=== PATIENT | female | born 1945 | race Caucasian/White ===

== ENCOUNTER 2020-01-04 11:06 | Inpatient (IN) | payer MEDICARE, OTHER, SELFPAY ==
[2020-01-04] VITALS (10 sets, daily range): BP systolic 138–172; BP diastolic 59–92; PULSE 90–122; RESP 18–30; TEMP 36.7–38.2; O2SAT 94–100; BMI 16.0; BMI 16.5
--- NOTE | 2020-01-04 11:08 | XR_ITS ---
PROCEDURE: XR CHEST PORTABLE CLINICAL HISTORY: fall Posttraumatic pain COMPARISON: No exams were available for comparison FINDINGS: There is severe patient rotation to the right. There are chronic changes with hyperinflation and biapical pleural thickening. There are old right-sided rib fractures. No acute fracture apparent. No evidence of pneumothorax or lobar consolidation. IMPRESSION: No acute findings. Dictated by: Kodak Ames MD 01/04/2020 12:58 Electronically signed by Kodak Ames MD in [facility] 01/04/2020 12:58
--- NOTE | 2020-01-04 11:08 | XR_ITS ---
PROCEDURE: XR HIP LT 2-3V W/PELVIS CLINICAL INDICATION: fall Posttraumatic pain COMPARISON: No exams were available for comparison FINDINGS: There is a comminuted impacted fracture involving the left femoral neck at the inter trochanteric region. There is nearly 2 cm medial displacement of the lesser trochanter. There is coxa varus deformity. Femoral head is located. There is a Bates catheter present with osteoarthritic changes noted of the right hip. On the AP view of the pelvis there is are numerous small opacities overlying the right lower quadrant IMPRESSION: 1. Comminuted intertrochanteric left hip fracture with coxa varus deformity 2. Numerous small opacities overlying the right ilium and right lower quadrant which may be due to artifact. Gallstones could have a similar appearance although would be somewhat low for gallbladder. Dictated by: Kodak Ames MD 01/04/2020 13:05 Electronically signed by Kodak Ames MD in [facility] 01/04/2020 13:05
--- NOTE | 2020-01-04 11:08 | CT_ITS ---
PROCEDURE: CT HEAD/BRAIN WO CON CLINICAL INDICATION: fall Posttraumatic pain, Head injury with headache/pain, contusion, abrasion or hematoma COMPARISON: No exams were available for comparison TECHNIQUE: Axial images obtained. All CT scans at the facility use one or more dose reduction, viz: automated exposure control, ma/kV adjustment per patient size (including targeted exams where dose is matched to indication, i.e. head), or iterative reconstruction technique. FINDINGS: A mild degree of motion artifact which somewhat obscures fine detail. No midline shift, mass effect, intracranial hemorrhage, or hydrocephalus is evident. Low-density changes are present in the periventricular region consistent with ischemic gliotic change from microvascular disease. No acute calvarial fracture. There is moderate mucosal thickening of the sphenoid sinus. IMPRESSION: No acute intracranial findings Dictated by: Kodak Ames MD 01/04/2020 12:52 Electronically signed by Kodak Ames MD in [facility] 01/04/2020 12:52
--- NOTE | 2020-01-04 11:08 | XR_ITS ---
PROCEDURE: XR WRIST LT MIN 3V CLINICAL INDICATION: fall' Posttraumatic pain COMPARISON: No exams were available for comparison FINDINGS: There is a comminuted impacted distal radial fracture with mild dorsal angulation of the distal fracture fragment. The dorsal fracture fragment is displaced dorsally by 12 mm. There is some impaction of the fracture fragments with mild lateral displacement of the lateral fracture fragment. There is suspected intra-articular involvement. Avulsion fracture of the ulnar styloid noted. IMPRESSION: Comminuted displaced and dorsally angulated distal radial fracture with suspected intra-articular involvement with associated ulnar styloid avulsion. Dictated by: Kodak Ames MD 01/04/2020 13:01 Electronically signed by Kodak Ames MD in [facility] 01/04/2020 13:01
--- NOTE | 2020-01-04 11:08 | CT_ITS ---
PROCEDURE: CT CERVICAL SPINE WO CON CLINICAL INDICATION: fall Neck injury with pain, contusion/abrasion or hematoma, cervical sprain/strain the COMPARISON: XR CHEST PORTABLE from 01/04/2020 TECHNIQUE: Axial images obtained with sagittal and coronal reformats. All CT scans at the facility use one or more dose reduction, viz: automated exposure control, ma/kV adjustment per patient size (including targeted exams where dose is matched to indication, i.e. head), or iterative reconstruction technique. Axial spiral CT scanning performed of the cervical spine beginning at the base of the skull and continuing to the upper T-spine. 3-D multiplanar reconstruction with 3-D manipulation of volumetric data set in image rendering was completed by the radiologist and/or technologist with the supervision of the radiologist on independent workstation. FINDINGS: There is good alignment. There is diffuse osteopenia. The odontoid process is tilted posteriorly however, no definite fracture is apparent. This may represent old injury. There is thoracic kyphosis and exaggerated cervical lordosis. No definite fracture or dislocation. No prevertebral soft tissue swelling. It appears that the facets may be partially fused at C3-C4 and C5. There is degenerative disc disease at C3-C4 C4-C5 and C5-C6 no acute finding in the lung apices. IMPRESSION: 1. No acute fracture.. Possible odontoid fracture with posterior tilting of the odontoid 2. Thoracic kyphosis with cervical lordosis with degenerative changes Dictated by: Kodak Ames MD 01/04/2020 12:57 Electronically signed by Kodak Ames MD in [facility] 01/04/2020 12:57
--- NOTE | 2020-01-04 11:16 | ECG_ITS ---
APPROVED REPORT Exam: Resting ECG HR:113 bpm ECG Measurements Heart Rate 113 AXES VA 126 P 83 QRSd 98 QRS -57 QT 348 T 86 QTc 477 <Conclusion> Sinus tachycardia Incomplete right bundle branch block Left anterior fascicular block Voltage criteria for left ventricular hypertrophy Cannot rule out Septal infarct, age undetermined Abnormal ECG Electronically signed by : Levar Vergara, 01/05/2020 15:50:55
[2020-01-04 11:24] LABS: Basophils # 0.1 K/mm3 (0-0.2); Basophils % 0.4 % (0.1-2.0); Eosinophils % 0.1 % (0.1-12.0); Hematocrit 34.8 % (37.0-47.0); Hemoglobin 11.4 g/dL (12.2-16.2); Lymphocytes % 3.5 % (10-50); Mean Corpuscular HGB Conc 32.7 g/dL (31.8-35.4); Mean Platelet Volume 8.4 fl (7.4-10.4); Monocytes % 3.8 % (1.7-9.3); Neutrophils # 25.2 K/mm3 (1.8-7.8); Neutrophils % 92.2 % (37.0-80.0); Platelet Count 462 K/mm3 (142-424); Red Blood Count 3.78 M/mm3 (4.20-5.40); Red Cell Distribution Width 13.8 % (11.5-17.5); White Blood Count 27.3 K/mm3 (4.8-10.8)
[2020-01-04 11:28] LABS: Chloride 89 mmol/L (98-107); Potassium 4.2 mmoL/L (3.5-5.1); Sodium 134 mmol/L (136-145)
[2020-01-04 11:29] LABS: MANUAL DIFFERENTIAL MANUAL DIFFERENTIAL (MANUAL DIFF)
--- NOTE | 2020-01-04 11:29 | PC.NURSE ---
Pt to rad.
[2020-01-04 11:30] LABS: Creatine Kinase 205 U/L (30-135)
[2020-01-04 11:31] LABS: Albumin Level 4.2 g/dl (3.5-5.0); Albumin/Globulin Ratio 1.4 (1.1-1.8); Alkaline Phosphatase 129 U/L (38-126); Anion Gap 10.2 mEq/L (5-15); Bilirubin,Total 0.9 mg/dl (0.2-1.3); Blood Urea Nitrogen 22 mg/dl (7-17); Calcium 9.2 mg/dl (8.4-10.2); Carbon Dioxide 39 mmol/L (22.0-30.0); Estimated Glomerular Filt Rate 98 ml/min (>60); GFR (African American) 119 ML/MIN (>60); Globulin 2.9 g/dL (1.3-3.2); Glucose 190 mg/dl (74-100); Total Protein,Serum 7.1 g/dl (6.3-8.2)
[2020-01-04 11:32] LABS: Alanine Aminotransferase 33 U/L (12-78); Aspartate Amino Transferase 39 U/L (14-36)
[2020-01-04 11:40] LABS: Lymphocytes % 6 % (10-50); Monocytes % 3 % (2-9); Neutrophils % 91 % (42-76); RBC Morphology Normal; Total Cells Counted 100
[2020-01-04 11:41] LABS: Platelet Estimate Slight Increase
[2020-01-04 11:43] LABS: Troponin I 0.02 ng/ml (0.00-0.034)
[2020-01-04 11:59] LABS: Microscopic, Urine URINE MICROSCOPIC (MICROSCOPIC)
--- NOTE | 2020-01-04 12:05 | PC.NURSE ---
V/S DELAYED D/T PT BEING IN RAD
--- NOTE | 2020-01-04 12:17 | PC.NURSE ---
ice pack applied to lt wrist
--- NOTE | 2020-01-04 12:17 | PC.NURSE ---
daughter at bedside
--- NOTE | 2020-01-04 12:24 | HMH.EDFALL ---
ED Disposition Clinical Impression: SIRS (systemic inflammatory response syndrome) Hip fracture Qualifiers: Encounter type: initial encounter Fracture type: closed Laterality: left Qualified Code(s): S72.002A - Fracture of unspecified part of neck of left femur, initial encounter for closed fracture Fracture of wrist Qualifiers: Encounter type: initial encounter Fracture type: closed Laterality: left Qualified Code(s): S62.102A - Fracture of unspecified carpal bone, left wrist, initial encounter for closed fracture Fall Qualifiers: Encounter type: initial encounter Qualified Code(s): W19.XXXA - Unspecified fall, initial encounter UTI (urinary tract infection) Qualifiers: Urinary tract infection type: site unspecified Hematuria presence: without hematuria Qualified Code(s): N39.0 - Urinary tract infection, site not specified COPD (chronic obstructive pulmonary disease) Qualifiers: COPD type: unspecified COPD Qualified Code(s): J44.9 - Chronic obstructive pulmonary disease, unspecified Disposition: Admitted As Inpatient Condition on Discharge: Serious - Critical Care Critical Care Time: No Attestation: On 01/04/20, the high probability of a clinically significant, sudden or life threatening deterioration of the following system(s) required my full and direct attention, intervention and personal management. The time I documented below is in addition to time spent performing reported procedures but includes the following listed in this critical care notation. Medical Decision Making - Medical Records Medical records reviewed: Yes: I reviewed the patient's medical records. - Agustin Inquiry Pt receiving controlled substance: No Vital Signs: 01/04/20 11:07 01/04/20 12:11 01/04/20 12:12 Temperature 98.5 F Temperature Source Oral Pulse Rate [Left Radial] 122 H 109 H 104 H Respiratory Rate 30 H Blood Pressure [Right Arm] 156/86 H 153/89 H 153/89 H Blood Pressure Mean [Right Arm] 109 110 110 Blood Pressure Source [Right Arm] Automatic Cuff Blood Pressure Position [Right Arm] Sitting Supine Sitting 02 Sat by Pulse Oximetry 98 100 Oxygen Delivery Method Nasal Cannula Room Air Oxygen Flow Rate (LPM) 2 01/04/20 12:42 01/04/20 13:23 01/04/20 13:57 Temperature Temperature Source Pulse Rate [Left Radial] 110 H 90 104 H Respiratory Rate 28 H Blood Pressure [Right Arm] 157/87 H 162/80 H 167/92 H Blood Pressure Mean [Right Arm] 110 107 117 Blood Pressure Source [Right Arm] Automatic Cuff Automatic Cuff Blood Pressure Position [Right Arm] Supine Sitting Supine 02 Sat by Pulse Oximetry 100 96 98 Oxygen Delivery Method Room Air Nasal Cannula Nasal Cannula Oxygen Flow Rate (LPM) 2 2 - Lab Data Lab results reviewed: Yes: I reviewed the patient's lab results. Lab Results 01/04/20 11:05: Total Creatine Kinase 205 H, Troponin I 0.02 01/04/20 11:05: WBC 27.3 H*, RBC 3.78 L, Hgb 11.4 L, Hct 34.8 L, MCV 92.0, MCH 30.0, MCHC 32.7, RDW 13.8, Plt Count 462 H, MPV 8.4, Neut % (Auto) 92.2 H, Lymph % (Auto) 3.5 L, [place] % (Auto) 3.8, Eos % (Auto) 0.1, Baso % (Auto) 0.4, Neut # (Auto) 25.2 H, Lymph # (Auto) 1.0, [place] # (Auto) 1.0, Eos # (Auto) 0.0, Baso # (Auto) 0.1, Total Counted 100, Neutrophils % (Manual) 91 H, Lymphocytes % (Manual) 6 L, Monocytes % (Manual) 3, Platelet Estimate Slight increase, RBC Morphology Normal 01/04/20 11:05: Sodium 134 L, Potassium 4.2, Chloride 89 L, Carbon Dioxide 39 H, Anion Gap 10.2, BUN 22 H, Creatinine 0.60, Estimated GFR 98, Est GFR ( Amer) 119, Glucose 190 H, Calcium 9.2, Total Bilirubin 0.9, AST 39 H, ALT 33, Alkaline Phosphatase 129 H, Total Protein 7.1, Albumin 4.2, Globulin 2.9, Albumin/Globulin Ratio 1.4 01/04/20 11:12: Urine Color Dk yellow, Urine Appearance Clear, Urine pH 7.0, Ur Specific [place] 1.020, Urine Protein Trace, Urine Glucose (UA) Negative, Urine Ketones Negative, Urine Blood Negative, Urine Nitrate Negative, Urine Bilirubin Negative, Urine Urobilinogen
[2020-01-04 12:36] LABS: Appearance,Urine CLEAR (Clear); Bilirubin,Urine Negative (Negative); Blood, Urine Negative (Negative); Color,Urine DK YELLOW (Yellow); Glucose,Urine (UA) Negative (Negative); Ketones,Urine Negative (Negative); Leukocyte Esterase,Urine Negative (Negative); Nitrate,Urine Negative (Negative); Protein,Urine TRACE (Negative)
[2020-01-04 12:44] LABS: Bacteria,Urine 1+ /lpf; Mucus,Urine Trace /lpf; Squamous Epithelial Cell,Urine Occasional #/hpf (0-5)
--- NOTE | 2020-01-04 13:04 | PC.NURSE ---
helena velez paged
--- NOTE | 2020-01-04 13:05 | PC.NURSE ---
dr cornell speaking with vascular
--- NOTE | 2020-01-04 13:06 | CA_ITS ---
APPROVED REPORT EXAM: Comprehensive 2D, Doppler, and color-flow Echocardiogram Smudger: Liz Talbot RVT Ht: 5 ft 0 in Wt: 82lbs BSA: 1.28 BP: 153/89 mmHg Indications: LT HIP FX, PRE-OP,MURMUR,EX SMOKER,COPD TDS-PT FLAT ON BACK 2D Dimensions LVOT 1.48 cm (M/F) 1.5-2.5 M-Mode Dimensions RVDd 2.38 cm (0.9-2.6) LVDd 4.66 cm (3.5-5.7) LVDs 3.29 cm (3.5-5.7) IVSd 0.47 cm (0.6-1.1) PWd 0.75 cm (0.6-1.1) EF (Teich) 56.30% FS 29.40% EDV (Teich) 100.30 mL ESV (Teich) 43.80 mL LV Diastology E/A Ratio 0.71 Mitral Valve MV A Velocity 88.00 (40-130 cm/s) Left Ventricle Left atrium is mildly enlarged, left ventricular is normal size, mild concentric left ventricular hypertrophy, visually estimated ejection fraction 55% with no regional wall motion abnormality. Grade 1 diastolic dysfunction seen without tissue Doppler evidence of raise left atrial pressure. Right Ventricle Right atrium and right ventricular normal size and contractility. Aortic Valve Aortic valve is thickened and calcified leaflet continue to display good mobility, there is no aortic stenosis or aortic insufficiency. Mitral Valve Part of her leaflets are minimally thickened, there is no mitral stenosis, there is no mitral regurgitation. Tricuspid Valve Tricuspid valve is grossly normal there is mild tricuspid regurgitation. Tricuspid regurgitation jet versus inadequate but calculation of the right ventricular systolic pressure. Pulmonic Valve Pulmonic valve is poorly visualized. Great Vessels Aortic root is normal size. Pericardium No significant pericardial effusion noted. Conclusion 1. Mild in the left atrium, normal left ventricular size, mild concentric left ventricular hypertrophy, visually estimated ejection fraction 55% with no regional wall motion abnormality, grade 1 diastolic dysfunction seen without tissue Doppler evidence of raise left atrial pressure. 2. Mild mitral and tricuspid regurgitation. 3. No significant pericardial effusion noted. Electronically signed by : Keny Dominguez, 01/04/2020 19:32:55
--- NOTE | 2020-01-04 13:11 | CA_ITS ---
APPROVED REPORT Rounding And Backing Machine Operator: Liz Talbot RVT Laterality: Left Study Quality: Good Indications: DECREASED PULSES LLE,LT HIP FX Risk Factors Smoking VELOCITY AND DOPPLER WAVEFORM ANALYSIS RIGHT cm/sec Waveform Severity LEFT cm/sec Waveform Severity CHAIN PERSON 138.1/ Triphasic PFA 84.7/ Triphasic Prox SFA 140.6/ Triphasic Mid SFA 174.4/ Triphasic Dis SFA 135.5/ Triphasic POP 64.0/ Triphasic Post Tibial 104.2/ Triphasic Ant Tib/Dors Ped 57.0/ Biphasic Peroneal 75.7/ Triphasic Findings Study suggests no evidence of arterial occlusion of the left lower extremity. Conclusion Study suggests no evidence of arterial occlusion of the left lower extremity. Critical Notification Physician Notified Date: 01/04/2020 Time: 14:28 Physician Name: Dr Durant Electronically signed by : Kodak Ames MD 01/04/2020 16:11:14
--- NOTE | 2020-01-04 13:27 | PC.NURSE ---
helena velez in to see pt.
--- NOTE | 2020-01-04 13:27 | PC.NURSE ---
vascular here to do doppler
--- NOTE | 2020-01-04 13:29 | PC.NURSE ---
Dr Moss paged
--- NOTE | 2020-01-04 13:38 | HMH.CNCARD ---
History of Present Illness Consult date: 01/04/20 Requesting physician: Levar Vergara Consult reason: pre-op evaluation Chief complaint: Fall with left wrist and hip pain Additional Medical History:: 1. Hypertension 2. History of tobacco use discontinued earlier this year A. COPD B. Oxygen required 25/02 3. History of anxiety 4. Diffuse arthritis History of present illness: to ed per xiomy pt states fell lastnight and was unable to get up off floor, found on floor this am by family. pt c/o lt hip and lt wrist pain. lt leg rotated and shortened, lt wrist with swelling and bruising noted. pt denies any LOC, but is unsure of why she fell. pt denies any other c/o. pt wears o2 2L 25/02. pt recently moved to [facility] from [place], [place]. pt's rings white colored metal with clear stone removed lt ring finger and white color watch removed and given to pt. The above per Dr. Durant Patient's daughter is in the room with the patient and relates finding her on the floor this morning around 10:00 after she did not answer the phone. Patient states she was unable to get to her phone to call for help. She believes that she fell sometime between 9 and 930 last evening after returning from the kitchen towards the living room. Patient denies any chest pain, pressure or tightness. She denies any history of cardiac problems. She has been a smoker in the past but quit earlier this year after 60 years of smoking. She does wear oxygen at 2 L/min by nasal cannula 25/02. She does take medication for blood pressure and anxiety. EKG shows sinus tachycardia at 113 bpm with LAFB and voltage criteria for LVH. [facility] History *Have you ever received a pneumonia vaccine?: No *Have you received a flu vaccine this season?: No - *Social History Alcohol Intake: never *Occupational Status:: other Housing: other *Travel in the last 8 weeks: None Family Hx:: No significant family history Meds Home Medications Medication Instructions Recorded Confirmed Type ALPRAZolam [Xanax 1mg tab] 1 mg PO TID 01/04/20 01/04/20 History Pantoprazole Sodium [Protonix 40mg 40 mg PO BID 01/04/20 01/04/20 History tablet] Tiotropium [place] [Spiriva 2 cap IH DAILY 01/04/20 01/04/20 History 18mcg/puff inhaler] lisinopriL [Lisinopril 10mg Tab] 10 mg PO DAILY 01/04/20 01/04/20 History Allergies Allergy/AdvReac Type Severity Reaction Status Date / Time No Known Allergies Allergy Verified 01/04/20 11:32 Review of Systems - Review of Systems Review of systems:: pertinent systems reviewed and negative unless documented below - *Cardiovascular Reports shortness of breath with activity - *Respiratory Reports shortness of breath with activity - *Gastrointestinal Denies loose stools, Denies nausea, Denies vomiting - *Genitourinary Denies blood in urine - *Musculoskeletal Reports joint pain, Reports back pain - *Neurologic Denies localized weakness, Denies frequent falls, Denies headache(s), Denies memory loss, Denies dizziness, Denies weakness Exam Vital signs and Labs for Last 24 Hours: Temp Pulse Resp BP Pulse Ox 98.5 F 90 28 H 162/80 H 96 01/04/20 11:07 01/04/20 13:23 01/04/20 13:23 01/04/20 13:23 01/04/20 13:23 Laboratory Results - last 24 hr 01/04/20 11:05: Total Creatine Kinase 205 H, Troponin I 0.02 01/04/20 11:05: WBC 27.3 H*, RBC 3.78 L, Hgb 11.4 L, Hct 34.8 L, MCV 92.0, MCH 30.0, MCHC 32.7, RDW 13.8, Plt Count 462 H, MPV 8.4, Neut % (Auto) 92.2 H, Lymph % (Auto) 3.5 L, [place] % (Auto) 3.8, Eos % (Auto) 0.1, Baso % (Auto) 0.4, Neut # (Auto) 25.2 H, Lymph # (Auto) 1.0, [place] # (Auto) 1.0, Eos # (Auto) 0.0, Baso # (Auto) 0.1, Total Counted 100, Neutrophils % (Manual) 91 H, Lymphocytes % (Manual) 6 L, Monocytes % (Manual) 3, Platelet Estimate Slight increase, RBC Morphology Normal 01/04/20 11:05: Sodium 134 L, Potassium 4.2, Chloride 89 L, Carbon Dioxide 39 H, Anion Gap 10.2, BUN 22 H, Creatinine 0.60, Estimated GFR 98, Est G
[2020-01-04 13:44] LABS: Lactic Acid 1.4 mmol/L (0.7-2.1)
[2020-01-04 14:56] LABS: Coronavirus 19 IgG Antibody Negative (Negative); Coronavirus 19 IgM Antibody Negative (Negative)
--- NOTE | 2020-01-04 14:58 | P.CONPHA_ITS ---
[facility] Pharmacy VTE Monitoring - Patient Demographics Admission date: 01/04/20 Report Date: 01/04/20 Time: 14:58 Allergies/Adverse Reactions: Patient Allergies No Known Allergies Allergy (Verified 01/04/20 11:32) Height: 1.52 m Weight: 37.195 kg Patient Problems: Current Active Problems Intertrochanteric fracture of left hip (Acute) Left wrist fracture (Acute) Hypertension (Acute) Hip fracture (Acute) Fracture of wrist (Acute) Fall (Acute) SIRS (systemic inflammatory response syndrome) (Acute) UTI (urinary tract infection) (Acute) COPD (chronic obstructive pulmonary disease) (Acute) - VTE Risk Labs: VTE Related Lab Results Hgb 11.4 g/dL (12.2-16.2) L 01/04/20 11:05 Hct 34.8 % (37.0-47.0) L 01/04/20 11:05 Plt Count 462 K/mm3 (142-424) H 01/04/20 11:05 BUN 22 mg/dl (7-17) H 01/04/20 11:05 Creatinine 0.60 mg/dl (0.52-1.04) 01/04/20 11:05 - Prophylaxis VTE Prophylaxis Ordered?: Yes Types of VTE Prophylaxis: TEDS Knee High Location of Applied Device: Bilateral Lower Extremeties
--- NOTE | 2020-01-04 14:58 | PC.NURSE ---
report called to floor
--- NOTE | 2020-01-04 15:31 | HMH.HP ---
*Admission Date: 01/04/20 *Chief complaint: Fall with left hip and left wrist fracture *History of present illness: 74-year-old white female who 2 months ago moved to [place] to be closer to family from her home in [place], [place], who has a long history of rheumatoid arthritis, osteoarthritis and osteoporosis who has taken bisphosphonate medication off and on over the past several years. She has a history of compression fractures, and has had several corrective surgeries on her hands. She is never had a long bone fracture, but apparently fell last night and her daughter found her this morning and brought her to the emergency department because of inability to stand. She was found to have left hip fracture, left wrist fracture. Because of her history of oxygen dependence and cool extremity on the left cardiology was consulted-notes have been reviewed. They reviewed echocardiogram which showed preserved ejection fraction and no significant wall motion abnormalities and felt that patient was at elevated risk but acceptable risk for hip repair. She is transferred to the floor for further evaluation and orthopedic consultation. [facility] History I have reviewed the patient's past medical history: Yes Medical History: Reports:: Anxiety, Chronic Obstructive Pulmonary Disease (COPD), Dementia, Depression *Have you ever received a pneumonia vaccine?: No *Have you received a flu vaccine this season?: No Comment:: Osteoporosis with vertebral compression fractures - *Social History Educational Level: Attended High School Smoking Status: Current every day smoker Tobacco Type: cigarettes # Packs/Day (cigarettes): 1 Alcohol Intake: never *Occupational Status:: other Housing: other *Travel in the last 8 weeks: None Family Hx:: No significant family history Review of Systems - Review of Systems Review of systems:: pertinent systems reviewed and negative unless documented below Comfortably breathing on 2 L nasal cannula. Other than wrist and leg pain denies pains. - *Neurologic Reports headache(s), Denies confusion, Denies localized weakness, Denies frequent falls, Denies memory loss, Denies seizure-like activity, Denies dizziness, Denies weakness Meds Home Medications Medication Instructions Recorded Confirmed Type ALPRAZolam [Xanax 1mg tab] 1 mg PO TID 01/04/20 01/04/20 History Pantoprazole Sodium [Protonix 40mg 40 mg PO BID 01/04/20 01/04/20 History tablet] Tiotropium [place] [Spiriva 2 cap IH DAILY 01/04/20 01/04/20 History 18mcg/puff inhaler] lisinopriL [Lisinopril 10mg Tab] 10 mg PO DAILY 01/04/20 01/04/20 History Allergies Allergy/AdvReac Type Severity Reaction Status Date / Time No Known Allergies Allergy Verified 01/04/20 11:32 Exam Vital signs and Labs for Last 24 Hours: Temp Pulse Resp BP Pulse Ox 98.1 F 99 H 18 164/87 H 99 01/04/20 15:22 01/04/20 15:22 01/04/20 15:22 01/04/20 15:22 01/04/20 14:35 Laboratory Results - last 24 hr 01/04/20 11:05: Total Creatine Kinase 205 H, Troponin I 0.02 01/04/20 11:05: WBC 27.3 H*, RBC 3.78 L, Hgb 11.4 L, Hct 34.8 L, MCV 92.0, MCH 30.0, MCHC 32.7, RDW 13.8, Plt Count 462 H, MPV 8.4, Neut % (Auto) 92.2 H, Lymph % (Auto) 3.5 L, [place] % (Auto) 3.8, Eos % (Auto) 0.1, Baso % (Auto) 0.4, Neut # (Auto) 25.2 H, Lymph # (Auto) 1.0, [place] # (Auto) 1.0, Eos # (Auto) 0.0, Baso # (Auto) 0.1, Total Counted 100, Neutrophils % (Manual) 91 H, Lymphocytes % (Manual) 6 L, Monocytes % (Manual) 3, Platelet Estimate Slight increase, RBC Morphology Normal 01/04/20 11:05: Sodium 134 L, Potassium 4.2, Chloride 89 L, Carbon Dioxide 39 H, Anion Gap 10.2, BUN 22 H, Creatinine 0.60, Estimated GFR 98, Est GFR ( Amer) 119, Glucose 190 H, Calcium 9.2, Total Bilirubin 0.9, AST 39 H, ALT 33, Alkaline Phosphatase 129 H, Total Protein 7.1, Albumin 4.2, Globulin 2.9, Albumin/Globulin Ratio 1.4 01/04/20 11:05: SARS-CoV-2 IgG Ab (Rapid) Negative, SARS-CoV-2 IgM Ab (Rapid) Negative
--- NOTE | 2020-01-04 16:46 | PC.NURSE ---
called office and spoke with BJ when patient came to the floor around 15:[address] Abad aware of consult.
[2020-01-04 17:38] LABS: Troponin I 0.03 ng/ml (0.00-0.034)
--- NOTE | 2020-01-04 18:05 | PC.NURSE ---
has done well since admission. no complaints of pain. wrist in velcro splint. vitals stable. will continue to monitor
--- NOTE | 2020-01-04 18:39 | HMH.ORTHOCON ---
*Admission Date: 01/04/20 *Reason for consult:: L wrist + hip fxs *History of present illness: 74-year-old female admitted through the emergency department with injuries of the left hip and left wrist after a fall last night at home. She has recently moved to [place] to be closer to her family; she is relocated from [facility]. She fell at some point overnight but is not sure how, she was found this morning by her daughter and taken to the ED for evaluation after she could not stand. She has a long history of rheumatoid arthritis, psoriatic arthritis, osteoarthritis, osteoporosis. She also has oxygen dependent COPD, anxiety/depression, possible dementia and a history of vertebral compression fractures. She has been on bisphosphonates in the past but not currently. She takes Humira for her RA every 2 weeks; her last dose was 2 weeks ago. She has had surgery on the hands for RA; the description appears consistent with capsulotomy/synovectomy. She currently reports pain in the L wrist + L hip; mild bruising around the wrist but no opens wounds. Denies numbness or tingling in the LUE/LLE. Review of Systems - Review of Systems Review of systems:: pertinent systems reviewed and negative unless documented below - *Neurologic Reports headache(s), Denies confusion, Denies localized weakness, Denies frequent falls, Denies memory loss, Denies seizure-like activity, Denies dizziness, Denies weakness [facility] History I have reviewed the patient's past medical history: Yes Medical History: Reports:: Anxiety, Chronic Obstructive Pulmonary Disease (COPD), Dementia, Depression, Hypertension Denies:: Cancer, Diabetes Mellitus Type 2, Internal Pacemaker, MRSA *Have you ever received a pneumonia vaccine?: Yes *Have you received a flu vaccine this season?: Yes Other Medical History: Reports: Cataracts Other Surgeries: No: Pacemaker Amputation: No Fractures: No - *Social History Educational Level: Attended High School Smoking Status: Current every day smoker Tobacco Type: cigarettes # Packs/Day (cigarettes): 1 Smoking End Date: 09/05/19 Alcohol Intake: never *Occupational Status:: retired Housing: house Household Members: none *Travel in the last 8 weeks: None - Psychiatric History Pschychiatric History:: Reports:: Anxiety, Depression Family Hx:: Anemia, Cancer, Coronary Artery Disease, Diabetes, Heart Attack, Hypertension Meds Home Medications Medication Instructions Recorded Confirmed Type ALPRAZolam [Xanax 1mg tab] 1 mg PO TID 01/04/20 01/04/20 History Albuterol Sulfate [Albuterol 8.5 gm IH NEEDED PRN 01/04/20 01/04/20 History Sulfate Hfa] Pantoprazole Sodium [Protonix 40mg 40 mg PO BID 01/04/20 01/04/20 History tablet] Tiotropium [place] [Spiriva 2 cap IH DAILY 01/04/20 01/04/20 History 18mcg/puff inhaler] lisinopriL [Lisinopril 10mg Tab] 10 mg PO DAILY 01/04/20 01/04/20 History Allergies Allergy/AdvReac Type Severity Reaction Status Date / Time No Known Allergies Allergy Verified 01/04/20 11:32 Exam Vital signs and Labs for Last 24 Hours: Temp Pulse Resp BP Pulse Ox 100.8 F H 104 H 30 H 172/85 H 99 01/04/20 15:58 01/04/20 15:58 01/04/20 15:58 01/04/20 15:58 01/04/20 15:58 Laboratory Results - last 24 hr 01/04/20 11:05: Total Creatine Kinase 205 H, Troponin I 0.02 01/04/20 11:05: WBC 27.3 H*, RBC 3.78 L, Hgb 11.4 L, Hct 34.8 L, MCV 92.0, MCH 30.0, MCHC 32.7, RDW 13.8, Plt Count 462 H, MPV 8.4, Neut % (Auto) 92.2 H, Lymph % (Auto) 3.5 L, [place] % (Auto) 3.8, Eos % (Auto) 0.1, Baso % (Auto) 0.4, Neut # (Auto) 25.2 H, Lymph # (Auto) 1.0, [place] # (Auto) 1.0, Eos # (Auto) 0.0, Baso # (Auto) 0.1, Total Counted 100, Neutrophils % (Manual) 91 H, Lymphocytes % (Manual) 6 L, Monocytes % (Manual) 3, Platelet Estimate Slight increase, RBC Morphology Normal 01/04/20 11:05: Sodium 134 L, Potassium 4.2, Chloride 89 L, Carbon Dioxide 39 H, Anion Gap 10.2, BUN 22 H, Creatinine 0.60, Estimated GFR 98, Est GFR
--- NOTE | 2020-01-04 19:10 | PC.NURSE ---
report given to june
--- NOTE | 2020-01-04 19:30 | PC.NURSE ---
REPORT RECEIVED FROM Gracia BUENO RN.
--- NOTE | 2020-01-04 20:47 | INFXCTL.NOTE ---
PT MEDICATED PER EMAR AT THIS TIME R/T L HIP PAIN RATES IT A 7/10 ON VERBAL SCALE AT THIS TIME. PT ASSESSED AT THIS TIME. BILATERAL LUNG SOUNDS CLEAR. EDEMA NOTED TO L WRIST AND HAND. SPLINT/ BRACE IN PLACE ON HAND. DERMATITIS NOTED TO BILATERAL FEET. PT DENIES ANY FURTHER NEEDS AT THIS TIME. FAMILY MEMBER AT BEDSIDE. WILL CONTINUE TO OBSERVE.
--- NOTE | 2020-01-04 20:47 | PC.NURSE ---
PT MEDICATED PER EMAR AT THIS TIME. STATES PAIN 7/10 ON VERBAL SCALE R/T L HIP FX. BILATERAL LUNG SOUNDS CLEAR, NO EDEMA NOTED. DERMATITIS NOTED TO BILATERAL FEET. SWELLING AND BRUISING NOTED TO L WRIST, ARM AND HAND. L WRIST IS IN A SPLINT. BILATERAL HANDS ARE CONTRACTED IN FINGERS AND WRIST. INDWELLING CATH IS IN PLACE AND DRAINING CLEAR URINE. PT DENIES ANY FURTHER NEEDS AT THIS TIME. FAMILY MEMBER AT BEDSIDE. WILL CONTINUE TO OBSERVE.
--- NOTE | 2020-01-04 22:08 | PC.NURSE ---
DR. SUAREZ CARPET INSTALLER HELPER FOR [place] PAGED AT THIS TIME R/T TROPONIN BEING MISSED BY LAB AND INCREASING.
--- NOTE | 2020-01-04 22:17 | PC.NURSE ---
DR. SUAREZ RETURNED CALL AT THIS TIME. REPORT GIVEN OF HOW 2ND DRAW OF TROPONIN WAS MISSED AND GIVEN LAB VALUES OF TROPONINS THAT WERE RECEIEVED. NO NEW ORDERS AT THIS TIME.
--- NOTE | 2020-01-04 23:05 | PC.NURSE ---
ICE PACK APPLIED TO L HIP AT THIS TIME. PT RESTING AT INTERVAL. DENIES ANY FURTHER NEEDS AT THIS TIME.
[2020-01-05] VITALS (31 sets, daily range): BP systolic 112–152; BP diastolic 46–93; PULSE 81–107; RESP 16–24; TEMP 36.6–43; O2SAT 92–100; BMI 16.2
--- NOTE | 2020-01-05 00:48 | PC.NURSE ---
PT MEDICATED PER EMAR AT THIS TIME R/T PAIN R/T L HIP FX. RATES 7/10 AT THIS TIME ON VERBAL SCALE. SLEPT AT INTERVAL. DENIES ANY FURTHER NEEDS AT THIS TIME.
--- NOTE | 2020-01-05 04:18 | PC.NURSE ---
18 G IV IN RAC WAS NOTED TO BE DISLODGED AT THIS TIME. RN INSERTED NEW IV AT THIS TIME 20 G IN RAC. PT TOLERATED WELL. NS INFUSING AT 75 ML/HR.
--- NOTE | 2020-01-05 04:45 | PC.NURSE ---
RN ASSISTED WITH BED BATH AT THIS TIME. REDNESS NOTED TO BOTTOM. DRESSING APPLIED TO BOTTOM AT THIS TIME AND ROTATED TO A R TILT.
--- NOTE | 2020-01-05 04:55 | PC.NURSE ---
SX CONSENTS SIGNED AT THIS TIME BY DAUGHTER CLARI GOMEZ PER PT REQUEST. QUESTIONS ENCOURAGED AND ANSWERED AT THIS TIME. DENTURES REMOVED AND PLACED IN DENTURE CUP ON BEDSIDE TABLE AT THIS TIME.
--- NOTE | 2020-01-05 05:08 | PC.NURSE ---
MEDICATED PER EMAR AT THIS TIME R/T PAIN 7/10 ON VERBAL SCALE R/T L HIP PAIN. PT STATES THAT SHE IS EXPERIENCING SOME ANXIETY XANX NOT SCHEDULED UNTIL 0900. WAITING TO SEE IF MORPHINE WILL HELP THIS. WILL CONTINUE TO OBSERVE.
--- NOTE | 2020-01-05 06:15 | PC.NURSE ---
PT ASLEEP WITH EYES CLOSED RESPIRATIONS EVEN AND UNLABORED WILL CONTINUE TO OBSERVE.
[2020-01-05 06:21] LABS: Lymphocytes # 0.8 K/mm3 (0.7-4.5); Monocytes # 0.7 K/mm3 (0.1-1.0); Neutrophils # 11.2 K/mm3 (1.8-7.8)
[2020-01-05 06:32] LABS: Chloride 98 mmol/L (98-107); Potassium 3.9 mmoL/L (3.5-5.1); Sodium 133 mmol/L (136-145)
[2020-01-05 06:36] LABS: Anion Gap 4.9 mEq/L (5-15); Blood Urea Nitrogen 16 mg/dl (7-17); Carbon Dioxide 34 mmol/L (22.0-30.0); Creatinine Clearance Estimated 30 mL/min (50-200); Estimated Glomerular Filt Rate 156 ml/min (>60); GFR (African American) 189 ML/MIN (>60); Glucose 121 mg/dl (74-100)
[2020-01-05 06:46] LABS: Basophils % 0.3 % (0.1-2.0); Eosinophils % 0.3 % (0.1-12.0); Hematocrit 25.4 % (37.0-47.0); Lymphocytes % 6.6 % (10-50); Mean Corpuscular HGB Conc 32.8 g/dL (31.8-35.4); Mean Corpuscular Hemoglobin 29.7 pg (27.0-31.2); Mean Corpuscular Volume 90.4 fl (81-99); Mean Platelet Volume 7.4 fl (7.4-10.4); Monocytes % 5.8 % (1.7-9.3); Neutrophils % 87.1 % (37.0-80.0); Platelet Count 285 K/mm3 (142-424); Red Blood Count 2.81 M/mm3 (4.20-5.40); Red Cell Distribution Width 14.1 % (11.5-17.5); White Blood Count 12.9 K/mm3 (4.8-10.8)
[2020-01-05 06:51] LABS: MANUAL DIFFERENTIAL MANUAL DIFFERENTIAL (MANUAL DIFF)
[2020-01-05 06:55] LABS: INR 1.05 (0.9-1.1); Prothrombin Time 10.8 seconds (9.4-11.8)
--- NOTE | 2020-01-05 06:57 | PC.NURSE ---
PT BEING TAKEN DOWN TO PREOP AT THIS TIME.
[2020-01-05 06:58] LABS: Calcium 8.1 mg/dl (8.4-10.2)
[2020-01-05 07:09] LABS: Hemoglobin 8.3 g/dL (12.2-16.2)
--- NOTE | 2020-01-05 08:55 | HMH.ACPN2 ---
Internal Medicine - PN: Subj *Date: 01/05/20 *Time: 18:26 Interval history: Ms. Webster has been down in surgical jolley all morning. I have been able to assess her this afternoon. Patient is sleepy due to anesthesia but hemodynamically stable. Unable to elicit review of systems or history from her at this time. Daughter at bedside. Patient tolerated procedure well. No acute pain as she had a spinal block. Afebrile. Comfortable in bed at this time Exam Vital signs and Labs for Last 24 Hours: Temp Pulse Resp BP Pulse Ox 98.3 F 101 H 18 151/65 H 98 01/05/20 04:00 01/05/20 04:00 01/05/20 04:00 01/05/20 04:00 01/05/20 04:00 Laboratory Results - last 24 hr 01/04/20 11:05: Total Creatine Kinase 205 H, Troponin I 0.02 01/04/20 11:05: WBC 27.3 H*, RBC 3.78 L, Hgb 11.4 L, Hct 34.8 L, MCV 92.0, MCH 30.0, MCHC 32.7, RDW 13.8, Plt Count 462 H, MPV 8.4, Neut % (Auto) 92.2 H, Lymph % (Auto) 3.5 L, [place] % (Auto) 3.8, Eos % (Auto) 0.1, Baso % (Auto) 0.4, Neut # (Auto) 25.2 H, Lymph # (Auto) 1.0, [place] # (Auto) 1.0, Eos # (Auto) 0.0, Baso # (Auto) 0.1, Total Counted 100, Neutrophils % (Manual) 91 H, Lymphocytes % (Manual) 6 L, Monocytes % (Manual) 3, Platelet Estimate Slight increase, RBC Morphology Normal 01/04/20 11:05: Sodium 134 L, Potassium 4.2, Chloride 89 L, Carbon Dioxide 39 H, Anion Gap 10.2, BUN 22 H, Creatinine 0.60, Estimated GFR 98, Est GFR ( Amer) 119, Glucose 190 H, Calcium 9.2, Total Bilirubin 0.9, AST 39 H, ALT 33, Alkaline Phosphatase 129 H, Total Protein 7.1, Albumin 4.2, Globulin 2.9, Albumin/Globulin Ratio 1.4 01/04/20 11:05: SARS-CoV-2 IgG Ab (Rapid) Negative, SARS-CoV-2 IgM Ab (Rapid) Negative 01/04/20 11:12: Urine Color Dk yellow, Urine Appearance Clear, Urine pH 7.0, Ur Specific [place] 1.020, Urine Protein Trace, Urine Glucose (UA) Negative, Urine Ketones Negative, Urine Blood Negative, Urine Nitrate Negative, Urine Bilirubin Negative, Urine Urobilinogen 1.0, Ur Leukocyte Esterase Negative, Urine RBC 3-5, Urine WBC 10-20, Ur Squamous Epith Cells Occasional, Urine Bacteria 1+, Urine Mucus Trace 01/04/20 13:20: Blood Type AB Positive, Antibody Screen Positive, Crossmatch (AHG) See Detail 01/04/20 13:20: Lactate 1.4 01/04/20 13:20: Antibody Identification Anti-S 01/04/20 17:10: Troponin I 0.03 01/05/20 05:58: WBC 12.9 H D, RBC 2.81 L D, Hgb 8.3 L D, Hct 25.4 L, MCV 90.4, MCH 29.7, MCHC 32.8, RDW 14.1, Plt Count 285 D, MPV 7.4, Neut % (Auto) 87.1 H, Lymph % (Auto) 6.6 L, [place] % (Auto) 5.8, Eos % (Auto) 0.3, Baso % (Auto) 0.3, Neut # (Auto) 11.2 H, Lymph # (Auto) 0.8, [place] # (Auto) 0.7, Eos # (Auto) 0.0, Baso # (Auto) 0.0 01/05/20 05:58: PT 10.8, INR 1.05 01/05/20 05:58: Sodium 133 L, Potassium 3.9, Chloride 98, Carbon Dioxide 34 H, Anion Gap 4.9 L, BUN 16 D, Creatinine 0.40 L D, Estimated Creat Clear 30, Estimated GFR 156, Est GFR ( Amer) 189 D, Glucose 121 H D, Calcium 8.1 L D I & O for Last 24 hours: Intake & Output 01/02/20 01/03/20 01/04/20 01/05/20 23:59 23:59 23:59 23:59 Intake Total 0 / 0 900 / 900 Output Total 350 / 350 Balance 0 / -350 550 / 550 Weight 38.215 kg 37.421 kg - Constitutional no acute distress, cachectic, chronically ill appearing - *Routine HEENT Exam Head: Present: normocephalic Eye: Present: EOMI, PERRL ENT: Present: mucous membranes moist Comments: Bitemporal wasting - *Routine Neck Exam Present: supple. Absent: lymphadenopathy - *Routine Respiratory Exam Present: CTA bilaterally, prolonged expiratory phase. Absent: wheezes, crackles - *Routine Cardiovascular Exam Present: RRR - *Routine Abdominal Exam Present: soft, normoactive bowel sounds. Absent: tenderness - *Routine Extremities Exam Absent: cyanosis, clubbing, edema Comments: Chronic arthritic changes with deformities of hands, loss of skeletal muscle mass. Left hip surgical incision clean dry and intact; onychomycotic toenails that are greater than an inch and a half in length
--- NOTE | 2020-01-05 09:24 | PC.NURSE ---
ORDERS PUT IN FOR BLOOD CONSENT. HOWEVER, PT IS STILL OFF FLOOR, AND IN OR.
--- NOTE | 2020-01-05 09:40 | HMH.PHAINT ---
HOME MEDICATION RECONCILED FROM DR JANSEN'S OFFICE LIST.
[2020-01-05 09:49] LABS: Lymphocytes % 9 % (10-50); Monocytes % 4 % (2-9); Neutrophils % 87 % (42-76); Platelet Estimate Normal; RBC Morphology Normal; Total Cells Counted 100
--- NOTE | 2020-01-05 14:34 | XR_ITS ---
PROCEDURE: XR HIP LT 2-3V W/PELVIS CLINICAL INDICATION: s/p IMN L femur Follow-up ORIF left hip COMPARISON: XR HIP LT 2-3V W/PELVIS from 01/04/2020 XR FEMUR LT 2V from 01/05/2020 FINDINGS: Status post gamma nail with short intramedullary amna placement. There is good alignment of the left intertrochanteric fracture. Postsurgical gas is noted. Short intramedullary anma is present in the femur which is in good position. The distal aspect of the femur has an unremarkable appearance. IMPRESSION: Status post gamma nail placement with intramedullary amna with good alignment of the intertrochanteric femur fracture Dictated by: Kodak Ames MD 01/05/2020 20:15 Electronically signed by Kodak Ames MD in [place] 01/05/2020 20:15
--- NOTE | 2020-01-05 14:38 | XR_ITS ---
PROCEDURE: XR WRIST LT 2V CLINICAL INDICATION: ORIF LEFT WRIST USING C-ARM GUIDANCE Follow-up left wrist reduction COMPARISON: XR WRIST LT MIN 3V from 01/04/2020 FINDINGS: Status post closed reduction of the left wrist. There has been improvement in the impaction and mild dorsal displacement of the distal radial fragment. There does remain some mild dorsal displacement and angulation of the distal radial fragment. There is an overlying cast in place which obscures fine detail. IMPRESSION: Status post closed reduction with improved alignment and decreased displacement of the distal radial fracture with decreased impaction Dictated by: Kodak Ames MD 01/05/2020 20:17 Electronically signed by Kodak Ames MD in [place] 01/05/2020 20:17
--- NOTE | 2020-01-05 15:45 | HMH.ANESCL ---
[facility] Anesthesia Checklist - Patient Identification Patient Identification: Arm Band - Structural Data Admitted From: Inpatient Planned Operative Procedure/s: left hip gamm nail, left wrist closed reduction Consent for Planned Operative Procedure(s) Verified: Yes Verified Documents: Surgical Consent, History and Physical - NPO Status Verified Time NPO: 00:00 - Additional verifications Anesthesia Reactions: No - Airway Assessment C-Spine Mobility Assessed: Yes (mp2) TMJ Mobility Assessed: Yes Dentition: Edentulous - Neurological Assessment Level of Consciousness: Awake, Alert - Anesthesia Plan Anesthesia Risk discussed: Yes Anesthesia Plan: Verified ASA Class: III Anesthesia Type: MAC w/Spinal [facility] History I have reviewed the patient's past medical history: Yes Medical History: Reports:: Anxiety, Chronic Obstructive Pulmonary Disease (COPD), Dementia, Depression, Hypertension Denies:: Cancer, Diabetes Mellitus Type 2, Internal Pacemaker, MRSA *Have you ever received a pneumonia vaccine?: Yes *Have you received a flu vaccine this season?: Yes Other Medical History: Reports: Cataracts Anesthesia experience/problems:: nac Laterality Cases: Bilateral: Cataract Other Surgeries: Yes: Other. No: Pacemaker Amputation: No Fractures: No - *Social History Educational Level: Attended High School Smoking Status: Current every day smoker Tobacco Type: cigarettes # Packs/Day (cigarettes): 1 Smoking End Date: 09/05/19 Alcohol Intake: never Substance Use Type: denies use *Occupational Status:: retired Housing: house Household Members: none *Travel in the last 8 weeks: None - Psychiatric History Pschychiatric History:: Reports:: Anxiety, Depression Family Hx:: Anemia, Cancer, Coronary Artery Disease, Diabetes, Heart Attack, Hypertension
--- NOTE | 2020-01-05 17:13 | HMH.ANESI ---
[facility] Anesthesia Record Part I Intake, IV Amount: 1,500 Estimated blood loss (mL): 100 Urine output (mL): 100 Blood Pressure: 112/46 SaO2: 92 Pulse Rate: 90 Respiratory Rate: 16 Temperature: 98.5 F Patient is:: Drowsy, Stable Stable to PACU at:: 17:10
--- NOTE | 2020-01-05 17:23 | HMH.OPNOTE ---
Date of procedure: 01/05/20 Pre-op Diagnosis:: 1) left intertrochanteric femur fracture 2) left distal radius fracture Post-op Diagnosis:: 1) left intertrochanteric femur fracture 2) left distal radius fracture Procedure performed:: 1) intramedullary nail left femur 2) closed reduction left distal radius with splint application Surgeon:: Kanika Abad MD Treating Machine Operator(s):: Asa Leger FASHION MARKETER:: Jayson Tyler Anesthesia: MAC, spinal Estimated blood loss (mL): 100 Clinical Note:: 74-year-old female admitted through the emergency department with injuries of the left hip and left wrist after a fall 01/03/20 evening at home. She fell at some point overnight but is not sure how, she was found yesterday morning by her daughter, who brought her to the ED for evaluation. She has a long history of rheumatoid arthritis, psoriatic arthritis, osteoarthritis, osteoporosis. She also has oxygen dependent COPD, anxiety/depression, possible dementia and a history of vertebral compression fractures. She has been on bisphosphonates in the past but not currently. She takes Humira for her RA every 2 weeks; her last dose was 2 weeks ago. She currently reports pain in the L wrist + L hip; mild bruising around the wrist but no open wounds. Denies numbness or tingling in the LUE/LLE. X-rays revealed comminuted fractures of the left proximal femur (intertrochanteric fracture) and left distal radius. I discussed the nature of the injuries with the patient and her daughter and all treatment options, both surgical and non-surgical. I recommended intramedullary nail placement in the left femur with closed reduction/splinting of the distal radius fracture. I discussed the risks of the surgical procedure with the patient including but not limited to: bleeding, infection, neurovascular damage, malunion/nonunion, loss of reduction/hardware cut out, hardware failure, persistent pain and/or limp despite surgery, need for continued use of assistive device post surgery, and risks of anesthesia. The patient vocalized understanding and provided informed consent for the procedure. Operative findings:: implants: Kimmie Gamma 3 femoral intramedullary nail system nail: 11 x 180mm, 125 degree lag screw: 10.5 x 85mm distal interlocking screw: 5.0 x 35mm Operative note:: The patient was identified in preoperative holding and the left hip signed by myself. Consent was verified with the patient and all questions answered. She was then taken to the operating room where spinal anesthetic administered and 1g cefazolin was infused. The patient was then transferred to the fracture table and sedated intravenously for the procedure. The left leg was secured to the foot plate of the fracture table and the right leg placed in an adducted, extended position, well-padded and out of the way of c-arm; it was secured to the fracture table with coban and a pillow. Timeout was performed, identifying the correct patient, correct procedure and correct site. Next the left intertrochanteric femur fracture was visualized under fluoroscopy and closed reduction performed using the fracture table and a combination of hip adduction, internal rotation and longitudinal traction. Once acceptable reduction was achieved, the left hip was prepped and draped in the usual sterile fashion. The procedure was begun by using a guide pin held externally over the left hip to localize the level of the greater trochanter. Approximately 3cm proximal to this, a longitudinal incision was made on the lateral aspect of the hip approximately 3 cm long. The guidepin was placed over the tip of the greater trochanter and fluoroscopy used to confirm the appropriate starting point on both AP and lateral views. The guidepin was advanced under power into the proximal femur. Next a curved awl was placed over the guide pin and used to perforate the proximal cortex, creating an entry hole for the nail. A 11 x 180mm (125 degree) nail was advanced until w
--- NOTE | 2020-01-05 17:23 | HMH.ORTHPN ---
Subjective Date: 01/05/20 Time: 19:00 Principal diagnosis: L intertrochanteric femur fracture; L distal radius fracture Interval history: The patient underwent IMN L femur + closed reduction L DRF w/splinting this afternoon w/o complication. Surgery was delayed due to pre-operative anemia; it was felt to safer not to proceed until blood was available. Type and cross was positive for antibodies so crossmatched blood was obtained from the regional blood bank. Once this was in-house surgery was performed. EBL 100cc, 1500cc LR given, UOP 100cc. The patient is currently in PACU and H&H being drawn. PN: Obj Ex Vital signs: Temp Pulse Resp BP Pulse Ox 98.5 F 90 16 112/46 L 98 01/05/20 17:14 01/05/20 17:14 01/05/20 17:14 01/05/20 17:14 01/05/20 04:00 - Constitutional no acute distress - Routine HEENT Exam Head: Present: normocephalic Eye: Present: EOMI ENT: Present: mucous membranes moist - Routine Respiratory Exam Present: CTA bilaterally - Routine Cardiovascular Exam Present: RRR - Routine Abdominal Exam Present: soft. Absent: distended - Routine Exam Comments: miller to gravity with dark but clear urine - Routine Extremities Exam Comments: L hip dressings c/d/i, no strikethrough spinal anesthetic remains in effect, no sensory/motor below waist palpable pedal pulses LLE, foot warm LUE sugartong splint intact wiggles fingers L hand, AIN/PIN/ulnar nerves motor intact with SILT m/r/u dist fingers L hand pink/warm - Routine Back/Spine/Pelvis Exam Comments: bony sacral prominence covered/padded with PolyMem dressings; no ulcer present - Routine Skin Exam Present: intact, warm - Routine Neurological Exam Present: alert, oriented X3, sensory deficit, motor deficit, normal tone, vision grossly intact, hearing grossly intact. Absent: altered mental status - Urinary Catheter Management Miller Cath placed during this visit: no Progress Note: A&P (1) Intertrochanteric fracture of left hip Status: Acute Current Visit: Yes (2) Left wrist fracture Status: Acute Current Visit: Yes (3) Hypertension Status: Acute Current Visit: Yes (4) Osteoporosis Status: Acute Current Visit: Yes (5) Severe protein-calorie malnutrition Status: Acute Current Visit: Yes (6) Panlobular emphysema Status: Acute Current Visit: Yes (7) Anxiety disorder Status: Acute Current Visit: Yes Assessment and Plan for All Diagnoses:: 74yo F POD 0 s/p IMN L femur (IT fx) + closed reduction L distal radius fracture w/splint application -- NWB LUE; WBAT LLE -- sling LUE, keep LUE elevated and do not remove splint -- PT/OT for mobilization, gait training -- finish 24hr post-op prophy antibiotics -- DVT prophy: lovenox to start tomorrow -- continue SCDs, encourage IS 10x/hr while awake -- ice pack L hip PRN -- d/c miller tomorrow -- care management consult for placement -- dispo planning: anticipate need for SNF placement but patient has good family support if HHPT considered
--- NOTE | 2020-01-05 17:24 | XR_ITS ---
PROCEDURE: XR HIP LT 2-3V W/PELVIS CLINICAL INDICATION: s/p IMN L femur Follow-up ORIF left hip COMPARISON: XR HIP LT 2-3V W/PELVIS from 01/04/2020 XR FEMUR LT 2V from 01/05/2020 FINDINGS: Status post gamma nail with short intramedullary amna placement. There is good alignment of the left intertrochanteric fracture. Postsurgical gas is noted. Short intramedullary amna is present in the femur which is in good position. The distal aspect of the femur has an unremarkable appearance. IMPRESSION: Status post gamma nail placement with intramedullary amna with good alignment of the intertrochanteric femur fracture Dictated by: Kodak Ames MD 01/05/2020 20:15 Electronically signed by Kodak Ames MD in [place] 01/05/2020 20:15
[2020-01-05 18:15] LABS: Hemoglobin 7.5 g/dL (12.2-16.2)
--- NOTE | 2020-01-05 18:22 | PC.NURSE ---
per md mckenzie stated to transfuse 2 units now. and she plans to speak with dr. vasques for further orders.
--- NOTE | 2020-01-05 18:37 | PC.NURSE ---
Addendum entered by Estefany Mantilla RN 01/05/20 18:37: 1750- rad @ bedside getting post-op views Original Note: 1740- lab @ bedside getting post-op h&h
--- NOTE | 2020-01-05 19:30 | P.PN_ITS ---
[facility] Anesthesia Record Part II Discharge Time: 18:20 Destination: Medical Surgical Department PACU nurse assessment reviewed?: Yes Patient Condition:: Good Anesthesia Complications:: None Swallowing reflex intact?: Yes Cyanosis?: No Blood Pressure: 142/61 Pulse Rate: 90 Temperature: 97.8 F Mental Status: Alert & Oriented Pain level:: 0 Nausea and/or vomitting:: None Intake, IV Amount: 0
[2020-01-06] VITALS (18 sets, daily range): BP systolic 136–167; BP diastolic 63–85; PULSE 80–109; RESP 16–20; TEMP 36.9–37.6; O2SAT 93–100; BMI 17.2; BMI 17.3
[2020-01-06 03:39] LABS: Hematocrit 33.9 % (37.0-47.0)
[2020-01-06 03:49] LABS: Hemoglobin 11.5 g/dL (12.2-16.2)
--- NOTE | 2020-01-06 04:48 | PC.NURSE ---
A&OX4. PT TOLERATING 2LNC T/O SHIFT. PT TOLERATED 2 UNITS OF BLOOD OVER NIGHT. ADMINISTERED LASIX AFTER BLOOD PER OCT. F/C PRESENT, DRAINING BRIGHT CLEAR URINE. DRESSINGS PRESENT TO L HIP, CDI. ELEVATED T/O SHIFT. SCUD PRESENT TO R LEG. PT L ARM IN SPLINT AND ELEVATED T/O SHIFT. CDI. PT C/O PAIN IN L HIP X1 THIS SHIFT, TREATED WITH PAIN MED PER OCT. PT HAS RESTED VERY WELL THIS SHIFT. VSS WILL CONTINUE TO MONITOR.
--- NOTE | 2020-01-06 04:52 | PC.NURSE ---
SECOND UNIT OF BLOOD WAS VERIFIED WITH Micaela FRIAS RN AND BEGAN AT 0020. THIS NURSE BEGAN BLOOD IN TAR AND STARTED TO DOC ALL BLOOD VITALS. WHEN BLOOD WAS COMPLETED, TAR SHOWED THAT THIS UNIT OF BLOOD WAS NOT VERIFIED OR BEGAN. MIS CONTACTED AT 0435 01/05. PRE BLOOD VITALS: 0010: 1398/70, 98.6, 95HR, 18RR, 100% START: 0020: 146/66, 98.8, 94HR, 20RR, 97% 5 MIN: 0025: 146/68, 98.7, 93HR, 18RR, 98% 10 MIN: 0030: 153/70, 98.8, 95HR, 18RR, 97% 15 MIN: 0035: 141/69, 98.7, 93HR, 16RR, 99% 30MIN: 0050: 141/68, 98.5, 93HR, 16RR, 99% 45 MIN: 0105: 154/77, 99.0, 95HR, 16RR, 98% 60 MIN: 0120: 158/68, 99.7, 95HR, 16RR, 97% 2ND HOUR: 0220: 167/74, 99.1, 93HR, 18RR, 98% COMPLETE: 0233: 163/82, 99.0, 96HR, 16RR, 98% 1 HR POST VITALS: 0333: 156/85, 98.5, 97HR, 18RR, 96% PT TOLERATED WELL. RESTING IN BED AT THIS TIME.
[2020-01-06 06:13] LABS: Basophils # 0.1 K/mm3 (0-0.2); Basophils % 0.9 % (0.1-2.0); Eosinophils # 0.1 K/mm3 (0.0-0.4); Eosinophils % 0.7 % (0.1-12.0); Hematocrit 31.3 % (37.0-47.0); Hemoglobin 10.7 g/dL (12.2-16.2); Lymphocytes # 0.7 K/mm3 (0.7-4.5); Lymphocytes % 4.5 % (10-50); Mean Corpuscular HGB Conc 34.2 g/dL (31.8-35.4); Mean Corpuscular Hemoglobin 29.8 pg (27.0-31.2); Mean Corpuscular Volume 87.2 fl (81-99); Monocytes % 6.2 % (1.7-9.3); Neutrophils # 13.7 K/mm3 (1.8-7.8); Neutrophils % 87.7 % (37.0-80.0); Platelet Count 219 K/mm3 (142-424); Red Blood Count 3.59 M/mm3 (4.20-5.40); Red Cell Distribution Width 15.1 % (11.5-17.5); White Blood Count 15.6 K/mm3 (4.8-10.8)
[2020-01-06 06:28] LABS: MANUAL DIFFERENTIAL MANUAL DIFFERENTIAL (MANUAL DIFF)
[2020-01-06 06:31] LABS: Chloride 91 mmol/L (98-107); Potassium 3.2 mmoL/L (3.5-5.1); Sodium 134 mmol/L (136-145)
[2020-01-06 06:34] LABS: Alanine Aminotransferase 18 U/L (12-78); Albumin Level 3.2 g/dl (3.5-5.0); Albumin/Globulin Ratio 1.3 (1.1-1.8); Alkaline Phosphatase 86 U/L (38-126); Anion Gap 8.2 mEq/L (5-15); Aspartate Amino Transferase 32 U/L (14-36); Bilirubin,Total 0.8 mg/dl (0.2-1.3); Blood Urea Nitrogen 14 mg/dl (7-17); Carbon Dioxide 38 mmol/L (22.0-30.0); Creatinine Clearance Estimated 31 mL/min (50-200); Estimated Glomerular Filt Rate 121 ml/min (>60); GFR (African American) 146 ML/MIN (>60); Globulin 2.4 g/dL (1.3-3.2); Glucose 138 mg/dl (74-100); Total Protein,Serum 5.6 g/dl (6.3-8.2)
[2020-01-06 07:47] LABS: Lymphocytes % 4 % (10-50); Monocytes % 8 % (2-9); Neutrophils % 88 % (42-76); Total Cells Counted 100
[2020-01-06 07:48] LABS: Platelet Estimate Normal; RBC Morphology Normal
--- NOTE | 2020-01-06 07:59 | PC.NURSE ---
called clinic and spoke with James about consult for Dr. Peace
--- NOTE | 2020-01-06 08:06 | HMH.ACPN2 ---
Internal Medicine - PN: Subj *Date: 01/06/20 *Time: 08:06 Interval history: Patient did well with surgery yesterday. Breathing has been fine overnight. Patient has minimal pain. Exam Vital signs and Labs for Last 24 Hours: Temp Pulse Resp BP Pulse Ox 98.5 F 90 18 156/85 H 96 01/06/20 03:33 01/06/20 05:00 01/06/20 03:33 01/06/20 03:33 01/06/20 03:33 Laboratory Results - last 24 hr 01/04/20 13:20: Blood Type AB Positive, Antibody Screen Positive, Crossmatch (AHG) See Detail 01/05/20 05:58: Total Counted 100, Neutrophils % (Manual) 87 H, Lymphocytes % (Manual) 9 L, Monocytes % (Manual) 4, Platelet Estimate Normal, RBC Morphology Normal 01/05/20 09:28: Blood Type Confirm AB Positive 01/05/20 17:50: Hgb 7.5 L*, Hct 23.0 L* 01/06/20 03:30: Hgb 11.5 L D, Hct 33.9 L 01/06/20 05:58: WBC 15.6 H, RBC 3.59 L D, Hgb 10.7 L, Hct 31.3 L, MCV 87.2, MCH 29.8, MCHC 34.2, RDW 15.1, Plt Count 219, MPV 8.0, Neut % (Auto) 87.7 H, Lymph % (Auto) 4.5 L, Stearns % (Auto) 6.2, Eos % (Auto) 0.7, Baso % (Auto) 0.9, Neut # (Auto) 13.7 H, Lymph # (Auto) 0.7, Stearns # (Auto) 1.0, Eos # (Auto) 0.1, Baso # (Auto) 0.1, Total Counted 100, Neutrophils % (Manual) 88 H, Lymphocytes % (Manual) 4 L, Monocytes % (Manual) 8, Platelet Estimate Normal, RBC Morphology Normal 01/06/20 05:58: Sodium 134 L, Potassium 3.2 L, Chloride 91 L, Carbon Dioxide 38 H, Anion Gap 8.2, BUN 14, Creatinine 0.50 L D, Estimated Creat Clear 31, Estimated GFR 121, Est GFR ( Amer) 146 D, Glucose 138 H, Calcium 8.0 L, Total Bilirubin 0.8, AST 32, ALT 18 D, Alkaline Phosphatase 86, Total Protein 5.6 L, Albumin 3.2 L, Globulin 2.4, Albumin/Globulin Ratio 1.3 I & O for Last 24 hours: Intake & Output 01/03/20 01/04/20 01/05/20 01/06/20 11:59 11:59 11:59 11:59 Intake Total 900 / 900 1800 / 1800 Output Total 350 / 350 1450 / 1450 Balance 550 / 550 350 / 350 Weight 82 lb 82 lb 8 oz 87 lb 8 oz Microbiology Reports for the Last 24 Hours: Microbiology 01/04/20 11:12 Urine,Catheterized Urine Culture - Preliminary NO GROWTH AFTER 24 HOURS Narrative: Patient is awake, alert. Oriented x3. Wearing oxygen as is her normal situation. She is oriented x3. Lungs have poor air movement but at baseline from her preop exam. Heart rate regular. Abdomen soft. Rheumatoid changes of hands noted. Left arm in splint. Able to wiggle feet well and no edema and warm skin. Assessment and Plan (1) Intertrochanteric fracture of left hip Current visit: Yes Status: Acute Category: Medical Code(s): S72.142A - Displaced intertrochanteric fracture of left femur, initial encounter for closed fracture (2) Left wrist fracture Current visit: Yes Status: Acute Category: Medical Code(s): S62.102A - Fracture of unspecified carpal bone, left wrist, initial encounter for closed fracture (3) Hypertension Current visit: Yes Status: Acute Category: Medical Code(s): I10 - Essential (primary) hypertension (4) Osteoporosis Current visit: Yes Status: Acute Category: Medical Code(s): M81.0 - Age-related osteoporosis without current pathological fracture (5) Severe protein-calorie malnutrition Current visit: Yes Status: Acute Category: Medical Code(s): E43 - Unspecified severe protein-calorie malnutrition (6) Panlobular emphysema Current visit: Yes Status: Acute Category: Medical Code(s): J43.1 - Panlobular emphysema (7) Anxiety disorder Current visit: Yes Status: Acute Category: Medical Code(s): F41.9 - Anxiety disorder, unspecified (8) Cachexia Current visit: Yes Status: Chronic Category: Medical Code(s): R64 - Cachexia - Assessment and plan all Dx Assessment and Plan for all problems:: Patient has done well postoperatively. Continue current plan, blood counts and electrolytes stable. PT/OT evaluation today. Care management evaluation for need for skilled care rehab.
--- NOTE | 2020-01-06 09:56 | HMH.OTEV ---
OT Inpatient Evaluation Rehab OT IP Evaluation Start: 01/05/20 17:25 Freq: ONCE Status: Complete Protocol: Document 01/06/20 09:37 RASHITOBY (Rec: 01/06/20 09:46 SHABANARHINANA [id number]) Rehab OT IP Assessment Subjective History 74 year old female referred to IP OT after having a fall on 01/03/20 at home alone and was found by family on 01/04/20. Patient recently moved to [place] ~ 2wks ago to be closer to family. Patient lives alone in 1 story home with 2-3 DELVIS. Patient stated to be independent with ADLs except with using shower chair during bathing. Fall resulted from displaced intertrochanteric fx of L femur and fx of unspecified carpal bone, left wrist. Subjective My hips hurts when I move it. Objective Patient Orientation Person,Place,Age,Birthday Upper Extremity Gross ROM Not Tested Shoulder ROM Limitations Pain Bed Mobility bed mobility - supine/sit,bed mobility - rolling Assist Level Maximum x 1 (75% assist) decrease in endurance Yes Rehab OT IP prob,goals,plan Problems Date of Evaluation: 01/06/20 OT IP Problems Bed Mobility,Transfers,Gait, Balance Rehab Potential Rehab Potential Good Plan OT intervention Plan Bed Mobility,Transfers,Balance ,Self care,Safety,Therapeutic Exercise OT Plan Frequency Daily Duration LOS Discharge Goals Bed Mobility Ability Standby Assistance Sit to Stand Chair Transfer Ability Moderate x 1 (50% assist) Chair Transfer Ability Moderate x 1 (50% assist), Moderate x 2 (50% assist) Chair Transfer Technique Stand Pivot Chair Transfer Assistive Devices Rolling Walker Feeding Ability Independent Lower Body Dressing Ability Assistance X1 Upper Body Dressing Ability Assistance X1 Bathing Ability Assistance x1 Performing Toilet Hygiene Ability Assistance X1 Overall Commode/Toilet Transfer Ability Assistance x1 Commode/Toilet Transfer Technique Stand Pivot Commode/Toilet Transfer Assistive Grab Bars Devices Oral Care Abili
--- NOTE | 2020-01-06 11:19 | HMH.ORTHPN ---
Subjective Date: 01/06/20 Time: 10:00 Principal diagnosis: L intertrochanteric femur fracture; L distal radius fracture Interval history: The patient is feeling well this morning; L hip pain reported, but manageable with medication. No pain reported in L wrist. She received 1 unit PRBC last night; Hgb 10.7 this morning. AFVSS, O2 sat consistently >90% on 2L NC. PN: Obj Ex Vital signs: Temp Pulse Resp BP Pulse Ox 99.0 F 91 H 16 150/69 H 94 L 01/06/20 08:00 01/06/20 08:00 01/06/20 08:00 01/06/20 08:00 01/06/20 08:00 - Constitutional no acute distress, thin - Routine HEENT Exam Head: Present: normocephalic Eye: Present: EOMI ENT: Present: mucous membranes moist - Routine Respiratory Exam Absent: respiratory distress - Routine Cardiovascular Exam Present: RRR - Routine Extremities Exam Comments: L hip dressings c/d/i, no strikethrough mild tenderness over L hip ROM L hip deferred +DF/PF/EHL LLE SILT distally LLE in all distributions palpable pedal pulses LLE, foot warm w/BCR L calf soft, non-tender LUE in sugartong splint AIN/PIN/ulnar nerves motor intact LUE SILT distally LUE in m/r/u distributions BCR all fingers LUE, fingers pink/warm - Routine Skin Exam Present: warm - Routine Neurological Exam Present: alert, oriented X3, moving all extremities, normal tone, vision grossly intact, hearing grossly intact, normal speech. Absent: sensory deficit, motor deficit, altered mental status - Routine Psychiatric Exam Present: normal affect - Urinary Catheter Management Bates Cath placed during this visit: no Progress Note: A&P (1) Intertrochanteric fracture of left hip Status: Acute Current Visit: Yes (2) Left wrist fracture Status: Acute Current Visit: Yes (3) Hypertension Status: Acute Current Visit: Yes (4) Osteoporosis Status: Acute Current Visit: Yes (5) Severe protein-calorie malnutrition Status: Acute Current Visit: Yes (6) Panlobular emphysema Status: Acute Current Visit: Yes (7) Anxiety disorder Status: Acute Current Visit: Yes (8) Cachexia Status: Chronic Current Visit: Yes Assessment and Plan for All Diagnoses:: 74yo F POD 1 s/p IMN L femur (IT fx) + closed reduction L distal radius fracture w/splint application -- anemic pre-op, which further decreased after surgery; Hgb 10.7 today after 1 unit PRBC, continue to monitor -- NWB LUE; WBAT LLE -- sling LUE, keep LUE elevated and do not remove splint; ok to remove sling while in bed and elevate arm on pillows, use sling while ambulatory -- PT/OT for mobilization, gait training -- finish 24hr post-op prophy antibiotics today -- DVT prophy: lovenox to start today -- continue SCDs, encourage IS 10x/hr while awake -- ice pack L hip PRN -- d/c angela this morning -- care management consult for placement -- dispo planning: anticipate need for SNF placement but patient has good family support if HHPT considered
--- NOTE | 2020-01-06 12:00 | HMH.PTEV ---
Physical Therapy Evaluation Rehab PT IP Evaluation Start: 01/05/20 17:25 Freq: ONCE Status: Active Protocol: Document 01/06/20 11:56 PHORNE (Rec: 01/06/20 12:00 PHORNE [id number]) Subjective/History History History 74 yowf adm to [facility] after fall at home with resulting L UE DR fx and L hip fx, Now S/P L wrist closed reduction and L femur IMN. She reports she lives alone at home and is independent with all activity. Subjective Subjective Currently she c/o L LE pain. Rehab PT IP Eval Objective Appearance Patient Behavior Appropriate Patient Orientation Person,Place,Time Difficulty following instructions none Speech Pattern Clear Ambulation Patient Able to Ambulate No Balance Ability to Arise Able, uses arms to help Sitting Balance Steady, safe Standing Balance Unsteady Dynamic Sitting Balance Ability Fair Dynamic Standing Balance Ability Poor Transfers Bed Transfer Ability Minimal x 1 (25% assist) Chair Transfer Ability Moderate x 1 (50% assist) Sit to Stand Bed Transfer Ability Moderate x 1 (50% assist) Sit to Stand Chair Transfer Ability Moderate x 1 (50% assist) ROM All Extremities PT ROM Status WFL Abnormal ROM Comment except L wrist NT MMT All Extremities PT MMT WFL Abnormal MMT Grade except L wrist NT, L LE 3/5 Rehab PT IP prob,goals,plan Problems Date of Evaluation: 01/06/20 PT IP Problems Bed Mobility,Transfers,Gait Rehab Potential Rehab Potential Good Plan PT Intervention Plan Bed Mobility,Transfers,Gait, Therapeutic Exercise PT Plan Frequency BID Duration LOS Discharge Goals Bed Transfer Ability Contact Guard/Hand Hold Sit to Stand Chair Transfer Ability Minimal x 2 (25% assist) Ambulation Distance (feet) 10 Discharge Plan PT Discharge Plan Pt is most appropriate for rehab placement at this time. G -code Required No Eval Complexity Eval Charge Codes 71074 - High Complexity PHYSICIAN CERTIFICATION: I certify the specified therapy services for Tati Webster are required, authorized, and reviewed every 30 days.
--- NOTE | 2020-01-06 13:04 | SW/DCPLANNER ---
SENT REFERRAL TO [facility] FOR A SKILLED STAY STATUS [facility] HIP [facility].... SPOKE WITH ANIBAL TO SEE IF SHE HAS ANY BEDS AVAILABLE AND SHE SAID THEY DO HAVE A BED AND I NEED TO SEND THE REFERRAL AND SHE WILL REVIEW IT... ACCORDING TO THERAPY SHE IS DOING WELL AND SHOULD REHAB WITHOUT TOO MUCH DIFFICULTY... WAITING TO HEAR BACK AND IF ACCEPTED COULD BE READY SOON SATURDAY PENDING NO SETBACKS...
--- NOTE | 2020-01-06 13:08 | HMH.ORTHOCON ---
*Admission Date: 01/04/20 <Divine Quintero - 01/06/20 13:14> *Reason for consult:: Podiatry consult for nail trim <Divine Quintero - 01/06/20 13:14> *History of present illness: 74-year-old female admitted through the emergency department with injuries of the left hip and left wrist after a fall last night at home. She has recently moved to [place] to be closer to her family; she is relocated from [facility]. She fell at some point overnight but is not sure how, she was found this morning by her daughter and taken to the ED for evaluation after she could not stand. She has a long history of rheumatoid arthritis, psoriatic arthritis, osteoarthritis, osteoporosis. She also has oxygen dependent COPD, anxiety/depression, possible dementia and a history of vertebral compression fractures. She has been on bisphosphonates in the past but not currently. She takes Humira for her RA every 2 weeks; her last dose was 2 weeks ago. She has had surgery on the hands for RA; the description appears consistent with capsulotomy/synovectomy. She currently reports pain in the L wrist + L hip; mild bruising around the wrist but no opens wounds. Denies numbness or tingling in the LUE/LLE. Patient resting in her recliner this morning, PT had just got her up and moving. Patient denies pain, numbness or tingling in her feet, she states she is just unable to trim her nails. Patient denies being a diabetic, pedal DP/PT pulses present and CFT is wnl. No Visible sores or breaks noted on the skin. Very dry skin noted to the soles of feet and heels. We discussed with the Patient about setting up with our Podiatry office for Routine Foot care and nail trimming every 10-12 weeks. The responded that this something that she would like to do. We will set the patient up with a follow-up appointment with podiatry in 3 months after discharge date to follow-up in podiatry to perform routine foot care as well as nail trim again. <Divine Quintero - 01/06/20 13:14> Review of Systems - Constitutional Denies fever(s) <Divine Quintero - 01/06/20 16:12> - Eyes Denies change in vision <Divine Quintero 01/06/20 16:12> - ENT Denies abnormal hearing <Divine Quintero 01/06/20 16:12> - *Cardiovascular Denies shortness of breath <Divine Quintero 01/06/20 16:12> - *Respiratory Denies shortness of breath <Divine Quintero 01/06/20 16:12> - *Gastrointestinal Denies abdominal pain <Divine Quintero 01/06/20 16:12> - *Genitourinary Denies difficulty urinating <Divine Quintero 01/06/20 16:12> - *Musculoskeletal Denies numbness, Denies tingling <Divine Quintero 01/06/20 16:12> - Integumentary/Breasts Reports nail changes <Divine Quintero 01/06/20 16:12> - *Neurologic Reports headache(s), Denies confusion, Denies localized weakness, Denies frequent falls, Denies memory loss, Denies seizure-like activity, Denies dizziness, Denies weakness <Divine Quintero 01/06/20 13:14> - Psychiatric Denies anxiety <Divine Quintero 01/06/20 16:12> [facility] History Medical History: Reports:: Anxiety, Chronic Obstructive Pulmonary Disease (COPD), Dementia, Depression, Hypertension Denies:: Cancer, Diabetes Mellitus Type 2, Internal Pacemaker, MRSA <Divine Quintero 01/06/20 13:14> *Have you ever received a pneumonia vaccine?: Yes <Divine Quintero 01/06/20 13:14> *Have you received a flu vaccine this season?: Yes <Divine Quintero 01/06/20 13:14> Other Medical History: Reports: Cataracts <LeonDivine Ho 01/06/20 13:14> Anesthesia experience/problems:: nac <LeonDivine Ho 01/06/20 13:14> Laterality Cases: Bilateral: Cataract <LeonDivine Ho 01/06/20 13:14> Other Surgeries: Yes: Other. No: Pacemaker <Divine Quintero 01/06/20 13:14> Amputation: No <Divine Quintero 01/06/20 13:14> Fractures: No <Divine Quintero 01/06/20 13:14> - *Social History Educational Level: Attended High School <Divine Quintero 01/06/20
--- NOTE | 2020-01-06 15:43 | PC.NURSE ---
Pt has been pleasant and cooperative this shift. A&O X4. Pt ambulates with 1 assist and sat in the chair for few hours. F/C to be DC'd this shift although, currently still in place at this time and draining clear, yellow urine to gravity. No complaints of pain or SOA. Pt turns/repositions self independently. Thigh-high IPC sleeve in place to the RT leg. 3 surgical dressings to the LT hip noted to be c/d/i. Edd wrap and sling to the LT arm noted to be c/d/i. Pt has applied ice packs to the LT hip intermittently this shift. Pt is receiving O2 via NC @ 2 LPM with sats >93%. Lungs CTA. Pt requested new IV to be inserted due to frequent RT arm bending. New 22 G peripheral IV placed in the RT forearm with NS infusing @ 75 ML/HR. 20 G to the RT AC is still in place with no s/s of infiltration. VSS. Call light within reach. Will continue to monitor.
--- NOTE | 2020-01-06 19:10 | PC.NURSE ---
report given to renetta
[2020-01-07] VITALS (8 sets, daily range): BP systolic 142–156; BP diastolic 65–77; PULSE 70–100; RESP 16–25; TEMP 36.3–36.9; O2SAT 95–99; BMI 17.1
--- NOTE | 2020-01-07 04:58 | PC.NURSE ---
Addendum entered by Chapin Poole RN 01/07/20 05:18: IS best of 750 this shift. Pt encouraged to use Q1HWA. Pt verbalized understanding. Original Note: Pt is A&Ox4 w/ no complaints reported to staff this shift. Pt slept in long intervals w/ daughter present at bedside. Pt repositions independently, favors her right side. SCUD in place to RLE. LLE elevated, distal pulses present, calf is non-tender, cap refill <3 sec, pt is able to move extremity. The (3) surgical drsg'd to left hip are C/D/I. Edd wrapped sling to LUE is C/D/I. Ice to affected extremities intermittently during shift. Pt tolerating 2LNC w/ sats between 97%-99%. Pt had not voided since miller cath removal at approximately 1730. Bladder mildly distended as of 0330. Received order for miller insertion @ 0400. Miller now anchored, patent to bedside drain w/ clear straw colored urine present. Will continue to monitor.
[2020-01-07 05:47] LABS: Microscopic, Urine URINE MICROSCOPIC (MICROSCOPIC)
[2020-01-07 05:48] LABS: Appearance,Urine CLEAR (Clear); Bilirubin,Urine Negative (Negative); Blood, Urine Negative (Negative); Color,Urine YELLOW (Yellow); Glucose,Urine (UA) Negative (Negative); Ketones,Urine Negative (Negative); Leukocyte Esterase,Urine Negative (Negative); Nitrate,Urine Negative (Negative); PH,Urine 6.5 (5.0-8.5); Protein,Urine Negative (Negative)
[2020-01-07 05:54] LABS: Bacteria,Urine 1+ /lpf; Mucus,Urine 1+ /lpf
--- NOTE | 2020-01-07 07:59 | HMH.ACPN2 ---
Internal Medicine - PN: Subj *Date: 01/07/20 *Time: 08:00 Interval history: Patient did well overnight. Pain stable as long she does not move much. Did have some urinary retention necessitating repeat placing Bates last night. Denies any fevers, nausea, vomiting, shortness of breath. Stable oxygen requirement. Anxiety stable. No complaints this morning. Ate breakfast well. Still has not had a bowel movement since admission. Exam Vital signs and Labs for Last 24 Hours: Temp Pulse Resp BP Pulse Ox 98.3 F 79 25 H 150/72 H 99 01/07/20 04:00 01/07/20 04:00 01/07/20 04:00 01/07/20 04:00 01/07/20 04:00 Laboratory Results - last 24 hr 01/07/20 04:20: Urine Color Yellow, Urine Appearance Clear, Urine pH 6.5, Ur Specific [place] 1.020, Urine Protein Negative, Urine Glucose (UA) Negative, Urine Ketones Negative, Urine Blood Negative, Urine Nitrate Negative, Urine Bilirubin Negative, Urine Urobilinogen 1.0, Ur Leukocyte Esterase Negative, Urine RBC 3-5, Urine WBC 3-5, Urine Bacteria 1+, Urine Mucus 1+ I & O for Last 24 hours: Intake & Output 01/04/20 01/05/20 01/06/20 01/07/20 23:59 23:59 23:59 23:59 Intake Total 0 / 0 2400 / 2400 1825 / 1825 919 / 919 Output Total 350 / 600 2850 / 2850 250 / 250 Balance 0 / -350 2050 / 1800 -1025 / -1025 669 / 669 Weight 38.215 kg 37.421 kg 40 kg 39.548 kg Microbiology Reports for the Last 24 Hours: Microbiology 01/04/20 13:20 Blood Blood Culture - Preliminary NO GROWTH AFTER 48 HOURS 01/04/20 13:20 Blood Blood Culture - Preliminary NO GROWTH AFTER 48 HOURS 01/04/20 11:12 Urine,Catheterized Urine Culture - Final NO GROWTH AFTER 48 HOURS Narrative: Patient is awake, alert. Oriented x3. Wearing oxygen as is her normal situation. Lungs have poor air movement but at baseline from her preop exam. No crackles or wheeze Heart rate regular. Abdomen soft. Rheumatoid changes of hands noted. Left arm in splint. Able to wiggle feet well and no edema and warm skin. Assessment and Plan (1) Intertrochanteric fracture of left hip Current visit: Yes Status: Acute Category: Medical Code(s): S72.142A - Displaced intertrochanteric fracture of left femur, initial encounter for closed fracture (2) Left wrist fracture Current visit: Yes Status: Acute Category: Medical Code(s): S62.102A - Fracture of unspecified carpal bone, left wrist, initial encounter for closed fracture (3) Hypertension Current visit: Yes Status: Acute Category: Medical Code(s): I10 - Essential (primary) hypertension (4) Osteoporosis Current visit: Yes Status: Acute Category: Medical Code(s): M81.0 - Age-related osteoporosis without current pathological fracture (5) Severe protein-calorie malnutrition Current visit: Yes Status: Acute Category: Medical Code(s): E43 - Unspecified severe protein-calorie malnutrition (6) Panlobular emphysema Current visit: Yes Status: Acute Category: Medical Code(s): J43.1 - Panlobular emphysema (7) Anxiety disorder Current visit: Yes Status: Acute Category: Medical Code(s): F41.9 - Anxiety disorder, unspecified (8) Cachexia Current visit: Yes Status: Chronic Category: Medical Code(s): R64 - Cachexia (9) Onychodystrophy Start date: 01/06/20 Current visit: Yes Status: Acute Category: Medical Code(s): L60.3 - Nail dystrophy (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
[2020-01-07 08:45] LABS: Basophils # 0.1 K/mm3 (0-0.2); Basophils % 0.9 % (0.1-2.0); Eosinophils # 0.2 K/mm3 (0.0-0.4); Eosinophils % 1.8 % (0.1-12.0); Hematocrit 26.6 % (37.0-47.0); Hemoglobin 8.8 g/dL (12.2-16.2); Lymphocytes # 0.6 K/mm3 (0.7-4.5); Lymphocytes % 6.9 % (10-50); Mean Corpuscular Hemoglobin 29.3 pg (27.0-31.2); Mean Corpuscular Volume 88.9 fl (81-99); Mean Platelet Volume 8.1 fl (7.4-10.4); Monocytes # 0.4 K/mm3 (0.1-1.0); Monocytes % 5.1 % (1.7-9.3); Neutrophils # 7.2 K/mm3 (1.8-7.8); Neutrophils % 85.4 % (37.0-80.0); Platelet Count 182 K/mm3 (142-424); White Blood Count 8.4 K/mm3 (4.8-10.8)
[2020-01-07 08:48] LABS: MANUAL DIFFERENTIAL MANUAL DIFFERENTIAL (MANUAL DIFF)
[2020-01-07 09:11] LABS: Eosinophils % 1 % (0-3); Lymphocytes % 5 % (10-50); Monocytes % 5 % (2-9); Neutrophils % 89 % (42-76); Platelet Estimate Normal; RBC Morphology Normal; Total Cells Counted 100
--- NOTE | 2020-01-07 10:51 | SW/DCPLANNER ---
Addendum entered by Aleah Sims 01/08/20 13:54: PATIENT HAS BEEN ACCEPTED TO [facility] FOR SKILLED REHAB SERVICES...DAUGHTER IS IN ROOM AND WILL BE TAKING PATIENT THIS AFTERNOON, DR ZARATE'S PRACTICE WILL FOLLOWING THIS PATIENT DURING HER SHORT SNF STAY.... Original Note: SENT UPDATES TO [facility] ON THIS PATIENT PER PREQUEST: WAITING ON A RETURN CALL TO WHETHER OR NOT THEY ARE GOING TO ACCEPT HER FOR SKILLED PLACEMENT....
[2020-01-07 12:30] LABS: Covid-19 Nasal PCR Sendout Lex Not Detected
--- NOTE | 2020-01-07 13:51 | HMH.ORTHPN ---
Subjective Date: 01/07/20 Time: 08:30 Principal diagnosis: L intertrochanteric femur fracture; L distal radius fracture Interval history: The patient is doing well this morning, minimal pain in the L hip at rest, no pain in L wrist. Pain increases in L hip with PT but tolerable. Unable to void overnight so miller replaced. Tolerating diet but no BM since Saturday. PN: Obj Ex Vital signs: Temp Pulse Resp BP Pulse Ox 98.5 F 82 18 142/69 H 98 01/07/20 08:00 01/07/20 08:00 01/07/20 08:00 01/07/20 08:00 01/07/20 08:00 - Constitutional no acute distress, thin - Routine HEENT Exam Head: Present: normocephalic Eye: Present: EOMI ENT: Present: mucous membranes moist - Routine Respiratory Exam Absent: respiratory distress, wheezes - Routine Cardiovascular Exam Present: RRR - Routine Abdominal Exam Present: soft. Absent: distended - Routine Extremities Exam Comments: L hip dressings c/d/i, no strikethrough dressings removed, scant bloody drainage on dressings no ecchymosis, drainage or periwound erythema around L hip incisions no tenderness over L hip ROM L hip deferred +DF/PF/EHL LLE SILT distally LLE in all distributions palpable pedal pulses LLE, foot warm w/BCR L calf soft, non-tender LUE in sugartong splint AIN/PIN/ulnar nerves motor intact LUE SILT distally LUE in m/r/u distributions BCR all fingers LUE, fingers pink/warm - Routine Skin Exam Present: warm - Routine Neurological Exam Present: alert, oriented X3, moving all extremities, normal tone, vision grossly intact, hearing grossly intact, normal speech. Absent: sensory deficit, motor deficit, altered mental status - Routine Psychiatric Exam Present: normal affect - Urinary Catheter Management Miller Cath placed during this visit: no Progress Note: A&P (1) Intertrochanteric fracture of left hip Status: Acute Current Visit: Yes (2) Left wrist fracture Status: Acute Current Visit: Yes (3) Hypertension Status: Acute Current Visit: Yes (4) Osteoporosis Status: Acute Current Visit: Yes (5) Severe protein-calorie malnutrition Status: Acute Current Visit: Yes (6) Panlobular emphysema Status: Acute Current Visit: Yes (7) Anxiety disorder Status: Acute Current Visit: Yes (8) Cachexia Status: Chronic Current Visit: Yes (9) Onychodystrophy Status: Acute Current Visit: Yes (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 Status: Acute Current Visit: Yes (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 Status: Acute Current Visit: Yes (12) Keratosis Status: Acute Current Visit: Yes Assessment and Plan for All Diagnoses:: 74yo F POD 2 s/p IMN L femur (IT fx) + closed reduction L distal radius fracture w/splint application -- Hgb 8.8 this morning, continue to monitor -- NWB LUE; WBAT LLE -- sling LUE, keep LUE elevated and do not remove splint; ok to remove sling while in bed and elevate arm on pillows, use sling while ambulatory -- PT/OT for mobilization, gait training -- DVT prophy: lovenox to continue -- continue SCDs, encourage IS 10x/hr while awake -- ice pack L hip PRN -- d/c angela per Dr. Coleman -- care management consult for placement -- dispo planning: SNF being investigated, anticipate d/c in next 1-2 days as bed becomes available
--- NOTE | 2020-01-07 14:16 | PC.NURSE ---
Pt has been pleasant and cooperative this shift. A&O X4. Pt ambulates in the room with 2 assist. Pt worked with PT twice thus far this shift and sat in the chair for a few hours. F/C DC'd this AM and pt is using the BSC to void. No BM this shift. Pt complained of pain X1 thus far and was medicated with Percocet per MAR. No complaints of SOA. Pt turns/repositions self independently, although she favors her RT side. Thigh-high IPC sleeve in place to the RT leg. 3 surgical dressings to the LT hip noted to be c/d/i. Edd wrap on the LT arm noted to be c/d/i. Pt has applied ice packs to the LT hip intermittently this shift. Pt is receiving O2 via NC @ 2 LPM with sats >95%. Lungs CTA. 22 G peripheral IV located in the RT forearm with NS infusing @ 75 ML/HR. 20 G to the RT AC is patent with no s/s of infiltration. VSS. Call light within reach. Will continue to monitor.
[2020-01-08] VITALS: BP 155/69; PULSE 70; PULSE 76; RESP 17; TEMP 36.7; O2SAT 97
--- NOTE | 2020-01-08 03:45 | PC.NURSE ---
PT. HAS NOT C/O SOA, DIZZINESS, N/V/D OR PAIN THIS SHIFT. REMAINS ON 2L NC WITH O2 SAT 95-97%. LUE AND LLE DSG C/D/I. LUE REMAINS ELEVATED.
[2020-01-08 04:00] VITALS: PULSE 70
[2020-01-08 04:31] VITALS: BP 132/81; PULSE 77; RESP 24; TEMP 36.8; O2SAT 96
[2020-01-08 04:37] VITALS: BMI 18.3
--- NOTE | 2020-01-08 07:55 | HMH.DCSUM ---
General - General Admission date:: 01/04/20 Discharge date: 01/08/20 HPI HPI: 74-year-old white female who 2 months ago moved to [place] to be closer to family from her home in [place], [place], who has a long history of rheumatoid arthritis, osteoarthritis and osteoporosis who has taken bisphosphonate medication off and on over the past several years. She has a history of compression fractures, and has had several corrective surgeries on her hands. She is never had a long bone fracture, but apparently fell last night and her daughter found her this morning and brought her to the emergency department because of inability to stand. She was found to have left hip fracture, left wrist fracture. Because of her history of oxygen dependence and cool extremity on the left cardiology was consulted-notes have been reviewed. They reviewed echocardiogram which showed preserved ejection fraction and no significant wall motion abnormalities and felt that patient was at elevated risk but acceptable risk for hip repair. She is transferred to the floor for further evaluation and orthopedic consultation. Hospital Course Hospital Course: 74-year-old female with inner troches fracture and left arm fracture due to a fall at home. History complicated by COPD and RA, on Humira every other week. She is done well while inpatient. Was treated for her fracture with surgical intervention by orthopedics. Tolerated procedure well and is required minimal pain control. Manage patient's anxiety which is severe by continuing a slightly reduced regimen of her home Xanax. Was on prophylactic antibiotics per orthopedic recommendations. Has participated with PT and done fairly well. Stable on her baseline oxygen requirement and using her home inhalers. Her only complication during admission was significant decrease in her hemoglobin necessitating transfusion with 2 units of blood. Hemoglobin has remained above goal with no active signs of bleeding during remainder of admission. She additionally was tested for COVID on admission and within 48 hours of planned discharge. Negative on both tests. At this time she is medically stable for discharge to shelter for continued rehabilitation care. Recommendations once they are: Anxiety, continue her home regimen of alprazolam 1 mg in the morning, half milligram at lunch, 1 mg at dinner, half milligram at bedtime. This controls her anxiety well per family report and she has been on this for quite some time. She had no adverse events with dual use of benzodiazepines and opiates while admitted. We will continue to have close monitoring in the outpatient setting. Rheumatoid arthritis -Patient is on Humira and has been for several years. Her disease process is stable with continued use of immune modulating therapies. She takes her dose every other week and will receive a dose today prior to discharge. It is my recommendation that this medication can safely be held for the next 45 to 60 days as it is been held for similar time periods when she has had pneumonia or COPD exacerbations without her having flares. However, if her admission necessitates staying longer, this medication needs to be reevaluated as a flare in her rheumatoid arthritis would complicate her continued recovery and benefit of physical therapy. Therefore reevaluation should be considered if she necessitates therapy/shelter care for more than 2 months. No complaint of nausea, diarrhea, chest pain. Hip pain well controlled. Baseline shortness of breath. Patient has not had a bowel movement while admitted but she states she only has a bowel movement about once a week and her last bowel movement was on Saturday. On stool softener at this time, continue in the outpatient setting. Objective Vital signs: Temp Pulse Resp BP Pulse Ox 98.3 F 77 24 132/81 96 01/08/20 04:31 01/08/20 04:31 01/08/20 04:31 01/08/20 04:31
[2020-01-08 08:00] VITALS: BP 152/55; PULSE 85; PULSE 87; RESP 18; TEMP 36.7; O2SAT 93
[2020-01-08 12:00] VITALS: PULSE 90
--- NOTE | 2020-01-08 13:23 | HMH.ORTHPN ---
Subjective Date: 01/08/20 Time: 12:30 Principal diagnosis: L intertrochanteric femur fracture; L distal radius fracture Interval history: The patient is doing very well today. She reports no pain in the L hip or wrist. Awaiting acceptance at SNF. PN: Obj Ex Vital signs: Temp Pulse Resp BP Pulse Ox 98.1 F 90 18 152/55 H 93 L 01/08/20 08:00 01/08/20 12:00 01/08/20 08:00 01/08/20 08:00 01/08/20 08:00 - Constitutional no acute distress, thin - Routine HEENT Exam Head: Present: normocephalic Eye: Present: EOMI ENT: Present: mucous membranes moist - Routine Respiratory Exam Absent: respiratory distress, wheezes - Routine Cardiovascular Exam Present: RRR - Routine Extremities Exam Comments: L hip dressings c/d/i, no strikethrough no tenderness over L hip ROM L hip deferred +DF/PF/EHL LLE SILT distally LLE in all distributions palpable pedal pulses LLE, foot warm w/BCR L calf soft, non-tender LUE in sugartong splint AIN/PIN/ulnar nerves motor intact LUE SILT distally LUE in m/r/u distributions BCR all fingers LUE, fingers pink/warm - Routine Skin Exam Present: warm - Routine Neurological Exam Present: alert, oriented X3, moving all extremities, normal tone, vision grossly intact, hearing grossly intact. Absent: sensory deficit, motor deficit, altered mental status - Urinary Catheter Management Bates Cath placed during this visit: no Progress Note: A&P (1) Intertrochanteric fracture of left hip Status: Acute Current Visit: Yes (2) Left wrist fracture Status: Acute Current Visit: Yes (3) Hypertension Status: Chronic Current Visit: Yes (4) Osteoporosis Status: Chronic Current Visit: Yes (5) Severe protein-calorie malnutrition Status: Chronic Current Visit: Yes (6) Panlobular emphysema Status: Chronic Current Visit: Yes (7) Anxiety disorder Status: Chronic Current Visit: Yes (8) Cachexia Status: Chronic Current Visit: Yes (9) Onychodystrophy Status: Acute Current Visit: Yes (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 Status: Acute Current Visit: Yes (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 Status: Acute Current Visit: Yes (12) Keratosis Status: Acute Current Visit: Yes (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 Ok to transfer at this time from ortho perspective. Follow-up with me in the office in 10-14 days; appointment will be added to discharge instructions.
--- NOTE | 2020-01-08 16:03 | PC.NURSE ---
REPORT CALLED TO [facility]. PACKET SENT WITH FAMILY WITH ALL DISCHARGE INSTRUCTIONS, FOLLOW UP APPOINTMENTS AND HAND WRITTEN SCRIPTS FOR LOVENOX/PERCOCET/XANAX. PT WILL BE TRANSFERRED TO [facility] BY PRIVATE CAR.
== END 2020-01-08 15:46 | DRG 480 ==
LOC: ER 12:11 → 2ND 14:21
PROVIDERS: Internal Medicine Adolescent Medicine; Orthopaedic Surgery; Admitting Provider Internal Medicine Adolescent Medicine; Emergency Provider Emergency Medicine; PCP Internal Medicine; Visit Provider Internal Medicine Adolescent Medicine
PROC: 0PSJXZZ Reposition Left Radius, External Approach (ICD-10-PCS; principal; 2020-01-05 07:30)
DX: S72.142A Displaced intertrochanteric fracture of left femur, initial encounter for closed fracture (principal); E43 Unspecified severe protein-calorie malnutrition; S52.572A Other intraarticular fracture of lower end of left radius, initial encounter for closed fracture; R64 Cachexia; Z68.1 Body mass index [BMI] 19.9 or less, adult; J43.1 Panlobular emphysema; Z99.81 Dependence on supplemental oxygen; M81.0 Age-related osteoporosis without current pathological fracture; D64.9 Anemia, unspecified; F41.9 Anxiety disorder, unspecified; L60.3 Nail dystrophy; L60.2 Onychogryphosis; Z79.51 Long term (current) use of inhaled steroids; Z79.899 Other long term (current) drug therapy; M06.9 Rheumatoid arthritis, unspecified; Z87.310 Personal history of (healed) osteoporosis fracture; W01.0XXA Fall on same level from slipping, tripping and stumbling without subsequent striking against object, initial encounter; Y92.019 Unspecified place in single-family (private) house as the place of occurrence of the external cause; Z72.0 Tobacco use; I10 Essential (primary) hypertension
CPT/HCPCS: 25605; 27245; 11719; 36415; 70450; 71045; 72125; 73100; 73110; 73502; 73552; 80048; 80053; 81001; 82550; 83605; 84484; 85007; 85014; 85018; 85025; 85610; 86328; 86850; 86870; 87040; 87086; 93005; 93306; 93926; 94640; 94761; 96365; 96367; 96375; 97110; 97116; 97163; 97165; 97530; 99285; C1713; P9016; U0004

== ENCOUNTER → 2020-01-21 10:57 | Outpatient (CLI) | payer MEDICARE, OTHER, SELFPAY ==
--- NOTE | 2020-01-21 11:08 | XR_ITS ---
PROCEDURE: XR WRIST LT MIN 3V CLINICAL INDICATION: wrist fx COMPARISON: XR WRIST LT 2V from 01/05/2020 FINDINGS: There is generalized osteopenia. The transverse fracture of the distal radius is again noted with dorsal angulation of the distal fracture fragment. The angulation is more prominent on today's film compared to the postsurgical fluoroscopic spot films from 01/05/2020 IMPRESSION: Apparent interval collapse of the transverse distal radial fracture when compared to the intraoperative fluoroscopic spot films Dictated by: Dr. Sushant Boucher MD 01/21/2020 11:[address] Sushant Boucher MD in [place] 01/21/2020 11:58
--- NOTE | 2020-01-21 11:08 | XR_ITS ---
PROCEDURE: XR HIP LT 2-3V W/PELVIS CLINICAL INDICATION: s/p lt hip FX COMPARISON: XR HIP LT 2-3V W/PELVIS from 01/05/2020 FINDINGS: The gamma nail remains in good position within the femoral neck and head. The intramedullary amna is stable and unchanged from the previous pelvic film 01/05/2020. T the pubic bones appear intact bilaterally, there is moderate osteoarthritic change right hip. He intertrochanteric fracture remains in good alignment. Multiple metallic skin sutures are again noted. IMPRESSION: S/p ORIF intertrochanteric fracture left hip which is in good alignment. Dictated by: Dr. Sushant Boucher MD 01/21/2020 11:[address] Sushant Boucher MD in [place] 01/21/2020 11:53
== END ==
PROVIDERS: PCP Internal Medicine; Visit Provider Orthopaedic Surgery
DX: S72.142A Displaced intertrochanteric fracture of left femur, initial encounter for closed fracture; S62.102A Fracture of unspecified carpal bone, left wrist, initial encounter for closed fracture
CPT/HCPCS: 73110; 73502

== ENCOUNTER 2020-01-21 12:37 | Outpatient (RCR) | payer MEDICARE, OTHER, SELFPAY | END 2020-01-21 13:00 | disposition home or self-care (01) | LOC: OT 12:37 | PROVIDERS: Visit Provider Orthopaedic Surgery | DX: S72.142D Displaced intertrochanteric fracture of left femur, subsequent encounter for closed fracture with routine healing (principal); S62.102D Fracture of unspecified carpal bone, left wrist, subsequent encounter for fracture with routine healing | CPT/HCPCS: 97763 ==

== ENCOUNTER → 2020-02-12 13:17 | Outpatient (CLI) | payer MEDICARE, OTHER, SELFPAY ==
--- NOTE | 2020-02-12 13:19 | XR_ITS ---
PROCEDURE: XR HIP LT 2-3V W/PELVIS CLINICAL INDICATION: Lt hip FX Fu Follow-up fracture/ORIF COMPARISON: XR HIP LT 2-3V W/PELVIS from 01/04/2020 XR HIP LT 2-3V W/PELVIS from 01/05/2020 XR HIP LT 2-3V W/PELVIS from 01/21/2020 FINDINGS: Gamma nail with intramedullary amna once again noted on the stabilizing the comminuted inter trochanteric and transcervical neck fracture with good alignment. No significant callus formation. Displaced lesser trochanter fragment once again noted. Osteoarthritic changes involve right hip. IMPRESSION: Status post ORIF left femoral neck fracture with good alignment Dictated by: Kodak Ames MD 02/12/2020 14:53 Electronically signed by Kodak Ames MD in [place] 02/12/2020 14:53
--- NOTE | 2020-02-12 13:19 | XR_ITS ---
PROCEDURE: XR WRIST LT MIN 3V CLINICAL INDICATION: wrist fx fu Follow-up fracture COMPARISON: XR WRIST LT MIN 3V from 01/04/2020 XR WRIST LT 2V from 01/05/2020 XR WRIST LT MIN 3V from 01/21/2020 FINDINGS: The cast has been removed. There is an impacted and displaced healing distal radial fracture with dorsal angulation of the distal fracture fragment overall not significantly changed. There is foreshortening of the distal radius. There is some overlying callus formation.. There is associated avulsion of ulnar styloid process IMPRESSION: No change in the displaced and dorsally angulated distal radial fracture Dictated by: Kodak Ames MD 02/12/2020 14:33 Electronically signed by Kodak Ames MD in [place] 02/12/2020 14:33
== END ==
PROVIDERS: PCP Internal Medicine Adolescent Medicine; Visit Provider Orthopaedic Surgery
DX: S72.142A Displaced intertrochanteric fracture of left femur, initial encounter for closed fracture (principal); S62.102A Fracture of unspecified carpal bone, left wrist, initial encounter for closed fracture
CPT/HCPCS: 73110; 73502

== ENCOUNTER → 2020-03-14 13:42 | Outpatient (CLI) | payer MEDICARE, OTHER, SELFPAY ==
--- NOTE | 2020-03-14 13:50 | XR_ITS ---
PROCEDURE: XR HIP LT 2-3V W/PELVIS CLINICAL INDICATION: s/p left hip fx COMPARISON: CR XR HIP LT 2-3V W/PELVIS from 02/12/2020 FINDINGS: Status post ORIF left hip with gamma nail and short intramedullary amna stabilizing the comminuted intertrochanteric fracture with medial displacement of the lesser trochanter fragment. There is good alignment. Overall no significant change. Mild osteoarthritic changes are present IMPRESSION: No change status post ORIF left hip Dictated b Kodak Ames MD 03/14/2020 15:14 Kodak Ames MD in [place] 03/14/2020 15:14
--- NOTE | 2020-03-14 13:50 | XR_ITS ---
PROCEDURE: XR WRIST LT MIN 3V CLINICAL INDICATION: wrist fracture Follow-up fracture COMPARISON: CR XR WRIST LT MIN 3V from 01/04/2020 CR,XA XR WRIST LT 2V from 01/05/2020 CR XR WRIST LT MIN 3V from 01/21/2020 CR XR WRIST LT MIN 3V from 02/12/2020 FINDINGS: Impacted displaced distal radial fracture once again noted with dorsal displacement and angulation of the distal fracture fragment not significantly changed. There is widening the distal radial ulnar joint space with radial DVT ends the wrist and hand. Osteoarthritic changes are present at the radiocarpal joint and there is mild widening of the scapholunate space. IMPRESSION: Overall no change in the displaced and dorsally angulated distal radial fracture. Dictated b Kodak Ames MD 03/14/2020 14:33 Kodak Ames MD in [place] 03/14/2020 14:33
== END ==
PROVIDERS: PCP Internal Medicine Adolescent Medicine; Visit Provider Orthopaedic Surgery
DX: S72.142A Displaced intertrochanteric fracture of left femur, initial encounter for closed fracture (principal); S62.102A Fracture of unspecified carpal bone, left wrist, initial encounter for closed fracture
CPT/HCPCS: 73110; 73502

== ENCOUNTER → 2020-04-18 15:33 | Outpatient (CLI) | payer MEDICARE, OTHER, SELFPAY ==
--- NOTE | 2020-04-18 15:41 | XR_ITS ---
PROCEDURE: XR HIP LT 2-3V W/PELVIS CLINICAL INDICATION: hip fracture Follow-up fracture COMPARISON: CR XR HIP LT 2-3V W/PELVIS from 03/14/2020 FINDINGS: Gamma nail with short intramedullary amna present stabilizing the left intertrochanteric hip fracture with good alignment of the fracture fragments. There remains medial displacement of the lesser trochanter fragment. Osteoarthritic changes are present involving the right hip. IMPRESSION: Good alignment status post ORIF left hip Dictated by: Kodak Ames MD 04/18/2020 17:20 Kodak Ames MD in [place] 04/18/2020 17:20
--- NOTE | 2020-04-18 15:41 | XR_ITS ---
PROCEDURE: XR WRIST LT MIN 3V CLINICAL INDICATION: wrist fracture Follow-up fracture COMPARISON: CR,XA XR WRIST LT 2V from 01/05/2020 CR XR WRIST LT MIN 3V from 01/21/2020 CR XR WRIST LT MIN 3V from 02/12/2020 CR XR WRIST LT MIN 3V from 03/14/2020 FINDINGS: There is an old healed fracture of the distal radius with dorsal angulation along with dorsal displacement and lateral displacement of the distal fracture fragment with mild separation of the radioulnar joint overall not significantly changed compared to 03/14/2020. IMPRESSION: No change displaced and dorsally angulated distal radial fracture with separation of the radioulnar joint Dictated by: Kodak Ames MD 04/18/2020 17:18 Kodak Ames MD in [place] 04/18/2020 17:18
== END ==
PROVIDERS: PCP Internal Medicine Adolescent Medicine; Visit Provider Orthopaedic Surgery
DX: S72.142D Displaced intertrochanteric fracture of left femur, subsequent encounter for closed fracture with routine healing (principal); S62.102D Fracture of unspecified carpal bone, left wrist, subsequent encounter for fracture with routine healing
CPT/HCPCS: 73110; 73502

== ENCOUNTER → 2020-04-28 14:46 | Outpatient (CLI) | payer MEDICARE, OTHER, SELFPAY ==
--- NOTE | 2020-04-28 14:53 | XR_ITS ---
PROCEDURE: XR KNEE LT 3V CLINICAL INDICATION: LT KNEE PAIN COMPARISON: No exams were available for comparison FINDINGS: No fracture or dislocation. No lytic or blastic change. There is normal mineralization. The joint spaces are well-preserved. No significant degenerative/arthritic changes. No erosive changes evident. Other findings:There is generalized osteopenia. There is diffuse vascular calcification. IMPRESSION: Osteopenia, no acute finding Dictated by: Kodak Ames MD 04/28/2020 15:31 Kodak Ames MD in [facility] 04/28/2020 15:31
[2020-04-28 16:01] LABS: Basophils % 0.4 % (0.1-2.0); Eosinophils # 0.2 K/mm3 (0.0-0.4); Eosinophils % 2.6 % (0.1-12.0); Hemoglobin 12.1 g/dL (12.2-16.2); Lymphocytes # 1.1 K/mm3 (0.7-4.5); Lymphocytes % 11.9 % (10-50); Mean Corpuscular Hemoglobin 30.2 pg (27.0-31.2); Mean Corpuscular Volume 97.4 fl (81-99); Monocytes # 0.4 K/mm3 (0.1-1.0); Monocytes % 4.9 % (1.7-9.3); Neutrophils # 7.1 K/mm3 (1.8-7.8); Neutrophils % 80.2 % (37.0-80.0); Platelet Count 347 K/mm3 (142-424); Red Blood Count 4.01 M/mm3 (4.20-5.40); Red Cell Distribution Width 13.1 % (11.5-17.5); White Blood Count 8.9 K/mm3 (4.8-10.8)
[2020-04-28 16:52] LABS: Chloride 92 mmol/L (98-107); Potassium 4.8 mmoL/L (3.5-5.1); Sodium 139 mmol/L (136-145)
[2020-04-28 16:54] LABS: Blood Urea Nitrogen 10 mg/dl (7-17); Estimated Glomerular Filt Rate 156 ml/min (>60); GFR (African American) 189 ML/MIN (>60)
[2020-04-28 16:55] LABS: Alanine Aminotransferase 11 U/L (12-78); Albumin Level 3.9 g/dl (3.5-5.0); Albumin/Globulin Ratio 1.5 (1.1-1.8); Alkaline Phosphatase 136 U/L (38-126); Aspartate Amino Transferase 22 U/L (14-36); Bilirubin,Total 0.4 mg/dl (0.2-1.3); Calcium 9.5 mg/dl (8.4-10.2); Cholesterol 183 mg/dl (140-200); Globulin 2.6 g/dL (1.3-3.2); Glucose 95 mg/dl (74-100); HDL Cholesterol 93 mg/dl (40-60); Total Protein,Serum 6.5 g/dl (6.3-8.2); Triglycerides 78 mg/dl (30-150); VLDL Cholesterol 16 mg/dL (0-40)
[2020-04-28 17:05] LABS: Anion Gap 12.8 mEq/L (5-15); Carbon Dioxide 39 mmol/L (22.0-30.0)
== END ==
PROVIDERS: PCP Nurse Practitioner Family; Visit Provider Nurse Practitioner Family
DX: Z00.00 Encounter for general adult medical examination without abnormal findings (principal); M25.562 Pain in left knee; J44.9 Chronic obstructive pulmonary disease, unspecified; M06.9 Rheumatoid arthritis, unspecified; Z79.899 Other long term (current) drug therapy
CPT/HCPCS: 36415; 73562; 80053; 80061; 85025

== ENCOUNTER → 2020-05-30 15:36 | Outpatient (CLI) | payer MEDICARE, OTHER, SELFPAY ==
--- NOTE | 2020-05-30 15:41 | XR_ITS ---
PROCEDURE: XR HIP LT 2-3V W/PELVIS CLINICAL INDICATION: LT hip FX F/U Follow-up fracture COMPARISON: CR XR HIP LT 2-3V W/PELVIS from 04/18/2020 FINDINGS: Left-sided gamma nail with short intramedullary amna present stabilizing the intertrochanteric fracture. Fracture line is still visible with a displaced fragment noted along the femoral neck inferiorly. There remains good alignment. IMPRESSION: Good alignment status post ORIF left intertrochanteric fracture with fracture line still visible. Dictated by: Kodak Ames MD 05/31/2020 17:01 Kodak Ames MD in [facility] 05/31/2020 17:01
== END ==
PROVIDERS: PCP Internal Medicine Adolescent Medicine; Visit Provider Orthopaedic Surgery
DX: S72.142A Displaced intertrochanteric fracture of left femur, initial encounter for closed fracture (principal)
CPT/HCPCS: 73502

== ENCOUNTER → 2022-01-18 13:14 | Outpatient (CLI) | payer MEDICARE, OTHER, SELFPAY ==
--- NOTE | 2022-01-18 13:20 | XR_ITS ---
FINAL REPORT CLINICAL HISTORY: SOA W TIGHTNESS AND COUGHING X 2 WKS. HX ASTHMA, COPD. FINDINGS: Two views of the chest were obtained. There is cardiomegaly. There is pulmonary vascular congestion. The mediastinum is normal. There are interstitial opacities, fibrosis versus edema. There is no pneumothorax. There is severe thoracic kyphosis. There is fusion of multiple thoracic vertebra which may represent ankylosing spondylitis. IMPRESSION: Interstitial opacities, fibrosis versus edema. Severe thoracic kyphosis. Fusion of multiple thoracic vertebrae, may represent ankylosing spondylitis. Reviewed, Interpreted and Dictated by Riaz Ackerman III, MD Transcribed by Ele Milner Authenticated and [facility]
== END ==
PROVIDERS: PCP Nurse Practitioner Family; Visit Provider Nurse Practitioner Family
DX: R05.9 Cough, unspecified (principal)
CPT/HCPCS: 71046

== ENCOUNTER → 2022-04-12 16:14 | Outpatient (CLI) | payer MEDICARE, OTHER, SELFPAY ==
--- NOTE | 2022-04-19 08:41 | PC.NURSE ---
PATIENT REGISTERED FOR THE OVERNIGHT POX - RETURNED NO DATA AND NO CHARGE TO PATIENT - STATES SHE DID NOT WANT TO DO TEST ON RA....
== END ==
PROVIDERS: Visit Provider Internal Medicine Pulmonary Disease
DX: R06.02 Shortness of breath (principal)

== ENCOUNTER → 2022-04-18 12:59 | Outpatient (CLI) | payer MEDICARE, OTHER, SELFPAY ==
[2022-04-18 13:45] VITALS: PULSE 95; PULSE 98
--- NOTE | 2022-04-18 14:33 | CT_ITS ---
FINAL REPORT TECHNIQUE: Axial images were obtained from the lung apex to the mid abdomen by computed tomography. Coronal reformatted images were obtained. This study was performed with techniques to keep radiation doses as low as reasonably achievable, (ALARA). Individualized dose reduction techniques using automated exposure control or adjustment of mA and/or kV according to the patient''s size were employed. CLINICAL HISTORY: ILD FINDINGS: CT CHEST W/O CONTRAST There is no axillary adenopathy. There is no hilar or mediastinal adenopathy. Heart size is normal. There is no pericardial or pleural effusion. Limited images of the upper abdomen demonstrate multiple gallstones in the gallbladder. On the lung window images, there are moderate changes of emphysema with moderate pulmonary scarring. There is mild bronchial wall thickening consistent with bronchitis. There are areas of mucous plugging involving both lower lobes. There is mild peripheral scarring/fibrosis. Focal opacities in the lingula favor atelectasis. There are scattered, small, less than 5 mm nodules. Some of which calcified. There is a small left pleural effusion. IMPRESSION: Areas of mucous plugging bilaterally. Mild peripheral scarring/fibrosis. Lingular opacities favoring atelectasis. Reviewed, Interpreted and Dictated by Riaz Ackerman III, MD Transcribed by Ele Milner Authenticated and [facility]
== END ==
PROVIDERS: PCP Internal Medicine Adolescent Medicine; Visit Provider Internal Medicine Pulmonary Disease
DX: J84.89 Other specified interstitial pulmonary diseases (principal)
CPT/HCPCS: 71250; 94060; 94640; 94727; 94729

== ENCOUNTER 2023-04-12 13:05 | Inpatient (IN) | payer MEDICARE, OTHER, SELFPAY ==
[2023-04-12] VITALS (9 sets, daily range): BP systolic 115–140; BP diastolic 45–71; PULSE 91–117; RESP 14–29; TEMP 36.6–36.8; O2SAT 91–99; BMI 29.5; BMI 14.4; BMI 15.4
--- NOTE | 2023-04-12 13:09 | ECG_ITS ---
APPROVED REPORT Exam: Resting ECG HR:111 bpm ECG Measurements Heart Rate 111 AXES AL 116 P 59 QRSd 122 QRS -38 QT 312 T 124 QTc 377 Conclusion SINUS TACHYCARDIA WITH SHORT AL INTERVAL POSSIBLE RIGHT ATRIAL ENLARGEMENT [0.25mV P-WAVE] LEFT AXIS DEVIATION [QRS AXIS < -30] LEFT VENTRICULAR HYPERTROPHY AND ST-T CHANGE [VOLTAGE CRITERIA PLUS ST/T ABNORMALITY] POSSIBLE SEPTAL MYOCARDIAL INFARCTION , POSSIBLY ACUTE [30 ms Q WAVE IN V1/V2] ACUTE AL UNCONFIRMED REPORT Electronically signed by : Levar Vergara MD 04/12/2023 16:48:49
[2023-04-12 13:15] LABS: POC Glucose,Bedside 163 (70-110)
--- NOTE | 2023-04-12 13:16 | PC.NURSE ---
Dr. Baig at [facility] for pt eval
--- NOTE | 2023-04-12 13:23 | XR_ITS ---
FINAL REPORT CLINICAL HISTORY: weakness, confusion COMPARISON: 01/18/2022 FINDINGS: SINGLE VIEW CHEST The heart is normal in size. The mediastinum is unremarkable. There are bilateral pulmonary opacities, may represent pneumonia or edema. There is pulmonary vascular congestion. There is no pneumothorax. IMPRESSION: Bilateral opacities, may represent pneumonia or edema. Reviewed, Interpreted and Dictated by Riaz Ackerman III, MD Transcribed by Margarita Salguero Authenticated and . [facility]
--- NOTE | 2023-04-12 13:26 | HMH.EDGENADL ---
Discharge Plan Disposition Patient Disposition: Admitted Chief Complaint: Weakness Prescriptions Prescriptions: No Action mirtazapine 7.5 mg tablet 7.5 mg PO DAILY folic acid 1 mg tablet 1 mg PO DAILY fluticasone furoate-vilanterol [Breo Ellipta] 100-25 mcg/dose blister with device 1 inh IH DAILY Qty: 90 3RF albuterol sulfate 90 mcg/actuation HFA aerosol inhaler 2 inh IH QID PRN (Reason: shortness of breath or wheezing) 90 Days Qty: 8.5 2RF Spiriva with HandiHaler 18 mcg capsule, w/inhalation device 1 cap IH DAILY 90 Days Qty: 90 3RF Rx Instructions: puncture 1 cap using device; one dose = 2 inhalations ipratropium-albuterol 0.5 mg-3 mg(2.5 mg base)/3 mL solution for nebulization 3 ml IH Q1HP PRN (Reason: Shortness Of Breath) Qty: 270 3RF pantoprazole 40 MG tablet,delayed release (DR/EC) 40 mg PO BID lisinopril 10 MG tablet 10 mg PO DAILY alprazolam 1 MG tablet 0.5 mg PO TID 30 Days Qty: 90 1RF Referrals Follow up/Referrals: Christina Varela APRN [Primary Care Provider] - See instructions Clinical Impressions Clinical Impression: Pneumonia, Sepsis, Acute on chronic respiratory failure with hypoxemia Discharge ED Provider: Jason Baig General Adult HPI General Chief complaint: Weakness Stated complaint: Stoke like symptoms Time Seen by Provider: 04/12/23 13:12 History of Present Illness HPI narrative: 78-year-old female presenting with weakness and altered mental status. Patient has history of COPD, rheumatoid and psoriatic arthritis, CAD. Has been progressively weak for the past few days. Stated that she did not feel good 1 day prior to arrival on 04/11. Did not eat dinner last night, when staff went to check on patient today, dinner was not eating, coffee was not made and patient was still in bed, which is abnormal for her. They tried to stand her up, but she became weak and fell backward onto the bed. Did not sustain any trauma. Weaker than usual. Daughter went to get patient from assisted living facility and brought her to the emergency department for further evaluation. Patient denies any other complaints other than feeling weak Related Data Home Medications Medication Instructions Recorded Confirmed lisinopril 10 mg tablet 10 mg PO DAILY High blood pressure 01/04/20 11/15/22 pantoprazole 40 mg tablet,delayed 40 mg PO BID GERD 01/04/20 11/15/22 release folic acid 1 mg tablet 1 mg PO DAILY 03/06/22 11/15/22 mirtazapine 7.5 mg tablet 7.5 mg PO DAILY 11/15/22 11/15/22 Previous Rx's Medication Instructions Recorded alprazolam 1 mg tablet 0.5 mg PO TID 30 days #90 tabs 01/08/20 albuterol sulfate 90 mcg/actuation 2 inh inhalation QID PRN shortness 04/23/22 aerosol inhaler of breath or wheezing 90 days #8.5 grams fluticasone furoate 100 1 inh inhalation DAILY #90 ea 04/23/22 mcg-vilanterol 25 mcg/dose inhalation powder (Breo Ellipta) ipratropium 0.5 mg-albuterol 3 mg 3 ml inhalation Q1HP PRN Shortness 04/23/22 (2.5 mg base)/3 mL nebulization Of Breath #270 mL soln tiotropium bromide 18 mcg capsule 1 cap inhalation DAILY 90 days #90 04/23/22 with inhalation device (Spiriva puffs with HandiHaler) Allergies Allergy/AdvReac Type Severity Reaction Status Date / Time No Known Allergies Allergy Verified 11/15/22 16:03 [facility] Disclaimer: The information contained in this section may have been updated after the patient was seen, as this information can be updated by other users. Medical History Abnormal computerized axial tomography of chest Chronic respiratory failure with hypoxia COPD (chronic obstructive pulmonary disease) Dyspnea on exertion History of COPD History of rheumatoid arthritis Idiopathic pulmonary fibrosis ILD (interstitial lung disease) Pulmonary emphysema Pulmonary fibrosis, unspecified Stopped smoking with greater than 30 pack year history Surgical History (Reviewed 11/15/22 @ 15:54 by Tita
--- NOTE | 2023-04-12 13:34 | PC.NURSE ---
RAD at BS
[2023-04-12 13:35] LABS: Basophils % 0.1 % (0.1-2.0); Eosinophils # 0.2 K/mm3 (0.0-0.4); Eosinophils % 1.1 % (0.1-12.0); Hematocrit 44.6 % (37.0-47.0); Hemoglobin 12.8 g/dL (12.2-16.2); Lymphocytes # 0.5 K/mm3 (0.7-4.5); Lymphocytes % 2.9 % (10-50); Mean Corpuscular HGB Conc 28.7 g/dL (31.8-35.4); Mean Corpuscular Hemoglobin 29.2 pg (27.0-31.2); Mean Corpuscular Volume 101.8 fl (81-99); Mean Platelet Volume 7.5 fl (7.4-10.4); Monocytes # 0.4 K/mm3 (0.1-1.0); Monocytes % 2.3 % (1.7-9.3); Neutrophils # 17.1 K/mm3 (1.8-7.8); Neutrophils % 93.6 % (37.0-80.0); Platelet Count 310 K/mm3 (142-424); Red Blood Count 4.39 M/mm3 (4.20-5.40); Red Cell Distribution Width 12.8 % (11.5-17.5); White Blood Count 18.2 K/mm3 (4.8-10.8)
[2023-04-12 13:36] LABS: Chloride 87 mmol/L (98-107); Potassium 4.6 mmoL/L (3.5-5.1); Sodium 137 mmol/L (136-145)
[2023-04-12 13:37] LABS: MANUAL DIFFERENTIAL MANUAL DIFFERENTIAL (MANUAL DIFF)
[2023-04-12 13:38] LABS: Blood Urea Nitrogen 34 mg/dl (7-17); Estimated Glomerular Filt Rate 97 ml/min (>60); GFR (African American) 117 ML/MIN (>60)
[2023-04-12 13:39] LABS: Alanine Aminotransferase 26 U/L (12-78); Albumin Level 3.7 g/dl (3.5-5.0); Alkaline Phosphatase 151 U/L (38-126); Aspartate Amino Transferase 26 U/L (14-36); Bilirubin,Total 0.6 mg/dl (0.2-1.3); Calcium 9.5 mg/dl (8.4-10.2); Globulin 3.6 g/dL (1.3-3.2); Glucose 183 mg/dl (74-100); Total Protein,Serum 7.3 g/dl (6.3-8.2)
[2023-04-12 13:45] LABS: Lymphocytes % 6 % (10-50); Monocytes % 6 % (2-9); Neutrophils % 88 % (42-76); Platelet Estimate Normal; RBC Morphology Normal; Total Cells Counted 100
[2023-04-12 13:48] LABS: Anion Gap 14.6 mEq/L (5-15); Carbon Dioxide 40 mmol/L (22.0-30.0)
[2023-04-12 13:51] LABS: Troponin I 0.02 ng/ml (0.00-0.034)
--- NOTE | 2023-04-12 14:16 | ECG_ITS ---
APPROVED REPORT Exam: Resting ECG HR:106 bpm ECG Measurements Heart Rate 106 AXES MA 124 P 57 QRSd 117 QRS -42 QT 317 T 51 QTc 379 Conclusion SINUS TACHYCARDIA LEFT AXIS DEVIATION [QRS AXIS < -30] LEFT VENTRICULAR HYPERTROPHY AND ST-T CHANGE [VOLTAGE CRITERIA PLUS ST/T ABNORMALITY] ABNORMAL ECG UNCONFIRMED REPORT Electronically signed by : Levar Vergara MD 04/12/2023 16:48:40
--- NOTE | 2023-04-12 15:08 | PC.NURSE ---
Dr. rivers at BS to update pt/visitor of POC
--- NOTE | 2023-04-12 16:29 | EXP.PHA.CONS ---
Pharmacy Consult Date: 04/12/23 Time: 16:29 Referring provider: DR ZARATE Reason for Consult:: VANCOMYCIN DOSING CONSULT Allergies Allergy/AdvReac Type Severity Reaction Status Date / Time No Known Allergies Allergy Verified 11/15/22 16:03 Home Medications Medication Instructions Recorded Confirmed Type lisinopril 10 mg tablet 10 mg PO DAILY High blood pressure 01/04/20 11/15/22 History pantoprazole 40 mg tablet,delayed 40 mg PO BID GERD 01/04/20 11/15/22 History release alprazolam 1 mg tablet 0.5 mg PO TID 30 days #90 tabs 01/08/20 11/15/22 Rx folic acid 1 mg tablet 1 mg PO DAILY 03/06/22 11/15/22 History albuterol sulfate 90 mcg/actuation 2 inh inhalation QID PRN shortness 04/23/22 11/15/22 Rx aerosol inhaler of breath or wheezing 90 days #8.5 grams fluticasone furoate 100 1 inh inhalation DAILY #90 ea 04/23/22 11/15/22 Rx mcg-vilanterol 25 mcg/dose inhalation powder (Breo Ellipta) ipratropium 0.5 mg-albuterol 3 mg 3 ml inhalation Q1HP PRN Shortness 04/23/22 11/15/22 Rx (2.5 mg base)/3 mL nebulization Of Breath #270 mL soln tiotropium bromide 18 mcg capsule 1 cap inhalation DAILY 90 days #90 04/23/22 11/15/22 Rx with inhalation device (Spiriva puffs with HandiHaler) mirtazapine 7.5 mg tablet 7.5 mg PO DAILY 11/15/22 11/15/22 History New Prescriptions to Start Prescriptions: Height: 1.65 m Weight: 39.463 kg Laboratory Results:: Laboratory Results - last 24 hr 04/12/23 13:08: POC Glucose 163 H 04/12/23 13:15: WBC 18.2 H, RBC 4.39, Hgb 12.8, Hct 44.6, MCV 101.8 H, MCH 29.2, MCHC 28.7 L, RDW 12.8, Plt Count 310, MPV 7.5, Neut % (Auto) 93.6 H, Lymph % (Auto) 2.9 L, [place] % (Auto) 2.3, Eos % (Auto) 1.1, Baso % (Auto) 0.1, Neut # (Auto) 17.1 H, Lymph # (Auto) 0.5 L, [place] # (Auto) 0.4, Eos # (Auto) 0.2, Baso # (Auto) 0.0, Total Counted 100, Neutrophils % (Manual) 88 H, Lymphocytes % (Manual) 6 L, Monocytes % (Manual) 6, Platelet Estimate Normal, RBC Morphology Normal, Sodium 137, Potassium 4.6, Chloride 87 L, Carbon Dioxide 40 H, Anion Gap 14.6, BUN 34 H, Creatinine 0.60, Estimated GFR 97, Est GFR ( Amer) 117, Glucose 183 H, Calcium 9.5, Total Bilirubin 0.6, AST 26, ALT 26, Alkaline Phosphatase 151 H, Troponin I 0.02, Total Protein 7.3, Albumin 3.7, Globulin 3.6 H, Albumin/Globulin Ratio 1.0 L 04/12/23 14:00: Lactate 1.0 Medical History: Medical History Abnormal computerized axial tomography of chest Chronic respiratory failure with hypoxia COPD (chronic obstructive pulmonary disease) Dyspnea on exertion History of COPD History of rheumatoid arthritis Idiopathic pulmonary fibrosis ILD (interstitial lung disease) Pulmonary emphysema Pulmonary fibrosis, unspecified Stopped smoking with greater than 30 pack year history Assessment and Plan Assessment and plan all Dx Assessment and Plan for all problems:: Pharmacokinetic dosing service Objective: Age: 78 yo Serum creatinine: 1 mg/dL Height: 65.0 Inches Weight (kg): 39.463 Diagnosis: PNEUMONIA Assessment: IBW (kg): 57.00 Dosing wt(kg): 39.463 Estimated Creatinine clearance (ml/min): 29.4 CRCL method: Cockcroft and Gault using ibw(default). Drug selected: Vancomycin Vd (liters): 29.6 (factor used: 0.75 L/kg) Elier (hr-1): 0.029 Half life (hrs): 23.90 CLvanco=?? 0.858 L/hr Recommended dose: 750 mg Interval: 36 hrs Infusion time (hrs): 2.0 Predicted peak (mcg/mL): 38.0 Predicted trough (mcg/mL): 14.18 Total body weight is being used for vancomycin dosing. Recommendations: Give Vancomycin 750 mg q 36 hrs with an expected Cpeak of 38.0 mcg/ml and an expected Ctrough of 14.18 mcg/ml AUC 0-24 /MAMI Data: MAMI 0.5 mcg/mL:?? AUC/MAMI:? 1165.5 MAMI 1.0 mcg/mL:?? AUC/MAMI:? 582.8 --------- MAMI 1.5 m
--- NOTE | 2023-04-12 17:07 | PC.NURSE ---
pt arrived to floor by stretcher 1700
[2023-04-12 17:16] LABS: Troponin I 0.02 ng/ml (0.00-0.034)
[2023-04-12 18:52] LABS: Adenovirus,PCR Not Detected (NotDetected); Bordetella Pertussis Not Detected (NotDetected); Chlamydophila Pneumoniae, PCR Not Detected (NotDetected); Coronavirus 19, PCR Not Detected (NotDetected); Coronavirus 229E Not Detected (NotDetected); Coronavirus NL63 Not Detected (NotDetected); Coronavirus OC43 Not Detected (NotDetected); Coronovirus HKU1,PCR Not Detected (NotDetected); Human Metapneumovirus Not Detected (NotDetected); Influenza A, PCR Not Detected (NotDetected); Influenza AH1, 2009 Not Detected (NotDetected); Influenza AH1, PCR Not Detected (NotDetected); Influenza AH3,PCR Not Detected (NotDetected); Influenza B, PCR Not Detected (NotDetected); Mycoplasma Pneumoniae, PCR Not Detected (NotDetected); Parainfluenza 1, PCR Not Detected (NotDetected); Parainfluenza 2, PCR Not Detected (NotDetected); Parainfluenza 3, PCR Not Detected (NotDetected); Parainfluenza 4, PCR Not Detected (NotDetected); Respiratory Syncytial Virus Not Detected (NotDetected); Rhinovirus/Enterovirus Not Detected (NotDetected)
[2023-04-12 19:45] LABS: Troponin I 0.02 ng/ml (0.00-0.034)
--- NOTE | 2023-04-12 21:03 | PC.NURSE ---
1899 PATIENT VERY LETHARGIC. OPENS EYES TO SHAKE. DOES NOT ATTEMPT TO SPEAK. DAUGHTER AT BEDSIDE STATES SHE HAS BEEN THIS WAY SINCE BROUGHT TO FLOOR. 98% ON 3LNC. TACHYCARDIC AT 108/MIN. HAS PURE WICK, NO UOP NOTED.
--- NOTE | 2023-04-12 21:49 | PC.NURSE ---
PATIENT TURNED TO RIGHT SIDE. HOB UP 35 DEGREES. PATIENT OPENED EYES TO TOUCH AND ANSWERED OK WHEN ASKED IF SHE WAS OK. REMAINS VERY LETHARGIC/WEAK. BED ALARM IN USE.
[2023-04-13] VITALS (7 sets, daily range): BP systolic 131–133; BP diastolic 50–63; PULSE 70–114; RESP 16–20; TEMP 36.7–36.9; O2SAT 74–97; BMI 16.6
--- NOTE | 2023-04-13 05:37 | PC.NURSE ---
PATIENT IS TOTAL CARE. TURNED Q 2 HOURS. 02 AT 3LNC. PUREWICK IN USE, URINE CONCENTRATED. WILL OPEN EYES SPONTANEOUSLY NOW AND ANSWERE YES-NO. MEPILEX INTACT TO COCCYX.
--- NOTE | 2023-04-13 06:00 | XR_ITS ---
PROCEDURE INFORMATION: Exam: XR Chest Exam date and time: 04/13/2023 6:21 AM Age: 78 years old Clinical indication: Shortness of breath; Additional info: F/u icu exam TECHNIQUE: Imaging protocol: Radiologic exam of the chest. Views: 1 view. COMPARISON: CR XR CHEST PORTABLE 04/12/2023 1:29 PM FINDINGS: Lungs: Hyperexpanded lung baptiste consistent with severe COPD. Again noted are extensive interstitial densities throughout the lung baptiste consistent with chronic lung changes. There may be superimposed opacities especially in the right hemithorax consistent with pneumonia.. Pleural spaces: Unremarkable. No pleural effusion. No pneumothorax. Heart/Mediastinum: Stable cardiac silhouette Bones/joints: Stable IMPRESSION: Hyperexpanded lung baptiste consistent with severe COPD. Again noted are extensive interstitial densities throughout the lung baptiste consistent with chronic lung changes. There may be superimposed opacities especially in the right hemithorax consistent with pneumonia..
--- NOTE | 2023-04-13 07:27 | PC.NURSE ---
Rapid Red called at this time
[2023-04-13 07:34] LABS: Basophils % 0.2 % (0.1-2.0); Eosinophils # 0.1 K/mm3 (0.0-0.4); Eosinophils % 0.3 % (0.1-12.0); Hematocrit 46.3 % (37.0-47.0); Hemoglobin 13.2 g/dL (12.2-16.2); Lymphocytes # 0.5 K/mm3 (0.7-4.5); Lymphocytes % 2.8 % (10-50); Mean Corpuscular HGB Conc 28.5 g/dL (31.8-35.4); Mean Corpuscular Hemoglobin 29.4 pg (27.0-31.2); Mean Corpuscular Volume 103.2 fl (81-99); Mean Platelet Volume 8.5 fl (7.4-10.4); Monocytes # 0.7 K/mm3 (0.1-1.0); Monocytes % 3.9 % (1.7-9.3); Neutrophils # 15.8 K/mm3 (1.8-7.8); Neutrophils % 92.8 % (37.0-80.0); Platelet Count 318 K/mm3 (142-424); Red Blood Count 4.49 M/mm3 (4.20-5.40); Red Cell Distribution Width 12.9 % (11.5-17.5)
[2023-04-13 07:35] LABS: MANUAL DIFFERENTIAL MANUAL DIFFERENTIAL (MANUAL DIFF)
[2023-04-13 07:38] LABS: ABG Base Excess 2.9 mmol/L (-2.4-2.3); ABG HCO3 35.9 mmhg (22.0-26.0); ABG Oxygen Saturation 49 % (90-100); ABG TCO2 41.8 mmhg (23-27)
[2023-04-13 07:38] LABS: Anion Gap 10.4 mEq/L (5-15); Blood Urea Nitrogen 32 mg/dl (7-17); Calcium 8.8 mg/dl (8.4-10.2); Carbon Dioxide 40 mmol/L (22.0-30.0); Chloride 97 mmol/L (98-107); Creatinine Clearance Estimated 30 mL/min (50-200); Estimated Glomerular Filt Rate 97 ml/min (>60); GFR (African American) 117 ML/MIN (>60); Glucose 127 mg/dl (74-100); Potassium 5.4 mmoL/L (3.5-5.1); Sodium 142 mmol/L (136-145)
[2023-04-13 07:39] LABS: ABG PCO2 191.4 mmhg (35.0-45.0); ABG PH 6.89 mmol/L (7.35-7.45)
[2023-04-13 07:40] LABS: ABG PO2 31.3 mmhg (80-100)
[2023-04-13 07:47] LABS: Appearance,Urine CLEAR (Clear); Bilirubin,Urine Negative (Negative); Blood, Urine Negative (Negative); Color,Urine YELLOW (Yellow); Glucose,Urine (UA) Negative (Negative); Ketones,Urine Negative (Negative); Leukocyte Esterase,Urine Negative (Negative); Microscopic, Urine URINE MICROSCOPIC (MICROSCOPIC); Nitrate,Urine Negative (Negative); Protein,Urine TRACE (Negative); Specific Gravity, Urine >= 1.030 (1.005-1.030); Urobilinogen,Urine 0.2 EU/dl (0.2)
--- NOTE | 2023-04-13 07:59 | PC.NURSE ---
UPON ASSESSMENT OF PT AT 0715, PT FOUND TO BE UNRESPONSIVE, ROGERS IN COLOR, AND GUPPY BREATHING. MD ZARATE MADE AWARE. RAPID RED CALLED TO ROOM [id number]. RAPID RESPONSE TEAM TO ROOM. DAUGHTER ARRIVED AT BEDSIDE AND MADE DECISION TO HAVE PT DNR AND COMFORT CARE. DAUGHTER REMAINING AT BEDSIDE WITH PT AT THIS TIME, NO NEEDS NOTED.
[2023-04-13 08:00] LABS: Lymphocytes % 5 % (10-50); Monocytes % 4 % (2-9); Neutrophils % 91 % (42-76); Platelet Estimate Normal; RBC Morphology Normal; Total Cells Counted 100
--- NOTE | 2023-04-13 08:01 | EXP.HP ---
History of Present Illness *Admission Date: 04/12/23 *Reason for visit:: Dyspnea and fatigue *History of present illness: 78-year-old white female with history of idiopathic pulmonary fibrosis, interstitial lung disease and chronic respiratory failure who was found the morning of admission, 04/12/2023 by her daughter to be very fatigued and somewhat confused. Mild cough, mild dyspnea. Brought to the ER. Found to be relatively hypotensive that responded to fluids and significant leukocytosis with bilateral pneumonic infiltrates. Placed on vancomycin and cefepime and seem to respond. Admitted to second floor with diagnosis of bilateral pneumonia and sepsis. [facility] Disclaimer: The information contained in this section may have been updated after the patient was seen, as this information can be updated by other users. Medical History Abnormal computerized axial tomography of chest Chronic respiratory failure with hypoxia COPD (chronic obstructive pulmonary disease) Dyspnea on exertion History of COPD History of rheumatoid arthritis Idiopathic pulmonary fibrosis ILD (interstitial lung disease) Pulmonary emphysema Pulmonary fibrosis, unspecified Stopped smoking with greater than 30 pack year history Surgical History No significant past surgical history Family History Other Anemia Cancer Coronary artery disease Diabetes Heart attack Hypertension Social History Smoking Status: Never smoker second hand exposure: Yes alcohol intake: never substance use type: denies use current occupational status: retired Travel in the last 8 weeks: None household members: none housing: house caffeine: Yes Meds Home Medications and Allergies Home Medications Medication Instructions Recorded Confirmed Type lisinopril 10 mg tablet 10 mg PO DAILY High blood pressure 01/04/20 04/12/23 History pantoprazole 40 mg tablet,delayed 40 mg PO BID GERD 01/04/20 04/12/23 History release alprazolam 1 mg tablet 0.5 mg PO TID 30 days #90 tabs 01/08/20 04/12/23 Rx folic acid 1 mg tablet 1 mg PO DAILY Supplement 03/06/22 04/12/23 History albuterol sulfate 90 mcg/actuation 2 inh inhalation QID PRN shortness 04/23/22 04/12/23 Rx aerosol inhaler of breath or wheezing 90 days #8.5 grams ipratropium 0.5 mg-albuterol 3 mg 3 ml inhalation Q1HP PRN Shortness 04/23/22 04/12/23 Rx (2.5 mg base)/3 mL nebulization Of Breath #270 mL soln tiotropium bromide 18 mcg capsule 1 cap inhalation DAILY 90 days #90 04/23/22 04/12/23 Rx with inhalation device (Spiriva puffs with HandiHaler) mirtazapine 7.5 mg tablet 7.5 mg PO DAILY sleep 11/15/22 04/12/23 History New Prescriptions to Start Prescriptions: Allergies Allergy/AdvReac Type Severity Reaction Status Date / Time No Known Allergies Allergy Verified 11/15/22 16:03 Exam Data for Last 24 hours Vital signs and Labs for Last 24 Hours: Temp Pulse Resp BP Pulse Ox O2 Del Method O2 Flow Rate 98.1 F 106 H 19 131/63 82 L Nasal Cannula 6 04/13/23 04:00 04/13/23 04:00 04/13/23 04:00 04/13/23 04:00 04/13/23 06:48 04/13/23 06:48 04/13/23 06:48 Laboratory Results - last 24 hr 04/12/23 07:20: Urine Color Yellow, Urine Appearance Clear, Urine pH 6.0, Ur Specific [place] >= 1.030, Urine Protein Trace, Urine Glucose (UA) Negative, Urine Ketones Negative, Urine Blood Negative, Urine Nitrate Negative, Urine Bilirubin Negative, Urine Urobilinogen 0.2, Ur Leukocyte Esterase Negative 04/12/23 13:08: POC Glucose 163 H 04/12/23 13:15: WBC 18.2 H, RBC 4.39, Hgb 12.8, Hct 44.6, MCV 101.8 H, MCH 29.2, MCHC 28.7 L, RDW 12.8, Plt Count 310, MPV 7.5, Neut % (Auto) 93.6 H, Lymph % (Auto) 2.9 L, [place] % (Auto) 2.3, Eos % (Auto) 1.1, Baso % (Auto) 0.1, Neut # (Auto) 17.1 H, Lymph # (Auto) 0.5 L, [place] # (Auto) 0.4, Eos # (Auto)
[2023-04-13 08:04] LABS: Bacteria,Urine Trace /lpf; RBC,Urine Occasional #/hpf (0-3); WBC,Urine Occasional #/hpf (0-3)
[2023-04-13 08:05] LABS: Hyaline Casts,Urine Occasional #/lpf (0)
--- NOTE | 2023-04-13 08:06 | EXP.ACUTE.PN ---
Subjective *Date: 04/13/23 *Time: 08:06 Interval history: Overnight patient has not done well. Oxygen saturations have remained in the 80% range. This morning at 7 AM I was called and I ordered an ABG and Lasix. Patient's PCO2 extremely high, greater than 120 with low pH. Rapid response was called. ER physician hospitalist responded-appreciate input. They discussed case with family, in light of her fibrosis intubation was decided to be high risk and family decided to pursue palliative care and DNR status. Medical Exam Vital signs and Labs for Last 24 Hours: Vital Signs Temp Pulse Pulse Resp BP BP Pulse Ox 04/13/23 06:48 82 L 04/13/23 06:36 04/13/23 05:00 04/13/23 04:00 98.1 F 106 H 19 131/63 97 04/13/23 04:00 106 H 04/13/23 02:56 04/13/23 01:00 04/13/23 00:00 98.4 F 109 H 20 133/50 L 90 L 04/13/23 00:00 114 H 04/12/23 22:52 04/12/23 21:00 04/12/23 20:00 98 04/12/23 19:39 98.1 F 108 H 19 119/56 L 98 04/12/23 18:24 107 H 25 H 98 04/12/23 17:00 04/12/23 17:17 97.9 F 107 H 25 H 121/45 L 99 04/12/23 16:47 97.9 F 91 H 20 122/71 04/12/23 14:30 107 H 14 125/57 L 96 04/12/23 14:00 105 H 28 H 122/56 L 93 L 04/12/23 13:10 98.2 F 117 H 20 140/53 L 91 L 04/12/23 13:30 104 H 29 H 115/51 L 97 O2 Del Method O2 Flow Rate 04/13/23 06:48 Nasal Cannula 6 04/13/23 06:36 Non-Rebreather 5 04/13/23 05:00 Nasal Cannula 3 04/13/23 04:00 Nasal Cannula 3.5 04/13/23 04:00 04/13/23 02:56 Nasal Cannula 3 04/13/23 01:00 Nasal Cannula 3 04/13/23 00:00 Nasal Cannula 3.5 04/13/23 00:00 04/12/23 22:52 Nasal Cannula 3 04/12/23 21:00 Nasal Cannula 3 04/12/23 20:00 Nasal Cannula 3 04/12/23 19:39 Nasal Cannula 3.5 04/12/23 18:24 Nasal Cannula 3 04/12/23 17:00 Nasal Cannula 2 04/12/23 17:17 Nasal Cannula 4 04/12/23 16:47 Nasal Cannula 2 04/12/23 14:30 Nasal Cannula 3 04/12/23 14:00 Nasal Cannula 3 04/12/23 13:10 Nasal Cannula 3 04/12/23 13:30 Nasal Cannula 3 Intake and Output 04/12/23 04/13/23 04/13/23 19:59 03:59 11:59 Intake Total 1110 / 2534 1424 / 2534 Output Total 0 / 101 1 / 101 100 / 101 Balance 0 / 2433 1109 / 2433 1324 / 2433 Intake: Intake, Total IV Amount 1110 / 2534 1424 / 2534 0.9 % Sodium Chloride 1000ML 1, 1010 / 2434 1424 / 2434 000 ml @ 125 mls/hr IV .Q8H CHELO Rx#:[id number] Cefepime HCl 2 gm In 0.9 % 100 / 100 Sodium Chloride 100 ml @ 200 mls/hr IV Q12H [facility]LO Rx#:[id number] Output: Output, Urine Amount 0 / 101 1 / 101 100 / 101 Other: Number of Unmeasured Voids 1 1 0 Weight 84 lb 4 oz 90 lb 3.2 oz Patient Weight 04/13/23 11:59 Weight 90 lb 3.2 oz Laboratory Results - last 24 hr 04/12/23 07:20: Urine Color Yellow, Urine Appearance Clear, Urine pH 6.0, Ur Specific [place] >= 1.030, Urine Protein Trace, Urine Glucose (UA) Negative, Urine Ketones Negative, Urine Blood Negative, Urine Nitrate Negative, Urine Bilirubin Negative, Urine Urobilinogen 0.2, Ur Leukocyte Esterase Negative, Urine RBC Occasional, Urine WBC Occasional, Ur Squamous Epith Cells 3-5, Urine Bacteria Trace, Hyaline Casts Occasional 04/12/23 13:08: POC Glucose 163 H 04/12/23 13:15: WBC 18.2 H, RBC 4.39, Hgb 12.8, Hct 44.6, MCV 101.8 H, MCH 29.2, MCHC 28.7 L, RDW 12.8, Plt Count 310, MPV 7.5, Neut % (Auto) 93.6 H, Lymph % (Auto) 2.9 L, [place] % (Auto) 2.3, Eos % (Auto) 1.1, Baso % (Auto) 0.1, Neut # (Auto) 17.1 H, Lymph # (Auto) 0.5 L, [place] # (Auto) 0.4, Eos # (Auto) 0.2, Baso # (Auto) 0.0, Total Counted 100, Neutrophils % (Manual) 88 H, Lymphocytes % (Manual) 6 L, Monocytes % (Manual) 6, Platelet Estimate Normal, RBC Morphology Normal, Sodium 137, Potassium 4.6, Chloride 87 L, Carbon Dioxide 40 H, Anion Gap 14.6, BUN 34 H, Creatinine 0.60, Estimated GFR 97, Est GFR ( Amer) 117, Glucose 183 H, Lorenzo
--- NOTE | 2023-04-13 13:57 | PC.NURSE ---
FAMILY RANG OUT REPORTING SEIZURE LIKE ACTIVITY FROM PATIENT. TOLD FAMILY THIS WAS NOT UNUSUAL, AND THAT ATIVAN CAN BE ADMINISTERED TO HELP PATIENT. FAMILY WANTS MEDICATION GIVEN. FAMILY IS ALSO REQUESTING NON-REBREATHER TO BE SWITCHED BACK TO NASAL CANNULA. 6LNC GOING AT THIS TIME. PT RESTING COMFORTABLY.
--- NOTE | 2023-04-13 15:07 | EXP.DEATH.NO ---
Pronouncement Note Date and Time of Date of : 04/13/23 Time of : 14:58 PCOD Preliminary cause of : Hypercapnia Contributing Factors (1) Pneumonia: (2) Sepsis: (3) Acute on chronic respiratory failure with hypoxemia: (4) Pulmonary fibrosis, unspecified: (5) Idiopathic pulmonary fibrosis: Additional Data Confirmation of : no pulse, no respirations, no heart sounds and pupils fixed and dilated Family: at bedside Attending/PCP notified?: Yes Attending physician: Levar Vergara MD Was code activated?: No Autopsy requested?: No cigarette making examiner notified?: Yes Organ bank notified?: Yes Advance directives: No
--- NOTE | 2023-04-13 15:11 | PC.NURSE ---
notified elieser beatty fusing machine feeder of . patient was cleared for release to home.
--- NOTE | 2023-04-13 15:27 | PC.NURSE ---
AT 1458, MONITOR READ ASYSTOLE. ASSESSED PATIENT, NO PULSE OR BREATH SOUNDS NOTED. MD ZARATE MADE AWARE, FAMILY AT BEDSIDE. SURAJ TO ROOM TO PRONOUNCE .
== END 2023-04-13 17:20 | disposition expired | DRG 193 ==
LOC: ER 16:06 → 2ND 16:50
PROVIDERS: Emergency Medicine; Admitting Provider Family Medicine; Emergency Provider Emergency Medicine; PCP Nurse Practitioner Family; Visit Provider Internal Medicine Adolescent Medicine
DX: J18.9 Pneumonia, unspecified organism (principal); J96.21 Acute and chronic respiratory failure with hypoxia; J84.9 Interstitial pulmonary disease, unspecified; J43.9 Emphysema, unspecified; M06.9 Rheumatoid arthritis, unspecified; Z66 Do not resuscitate; Z51.5 Encounter for palliative care; Z87.891 Personal history of nicotine dependence
CPT/HCPCS: 36415; 71045; 80048; 80053; 81001; 82803; 82962; 83605; 84484; 85007; 85025; 87040; 87581; 87632; 87798; 93005; 99285; J3370